=== PATIENT | male | born 1970 | race Caucasian/White ===

== ENCOUNTER 2023-05-18 12:13 | Emergency (ER) | payer SELFPAY ==
[2023-05-18 12:24] VITALS: BP 152/91; PULSE 108; RESP 16; TEMP 36.6; O2SAT 99; BMI 31.7
--- NOTE | 2023-05-18 13:23 | W.ED.SKABFB ---
HPI - Skin/Abscess/Foreign Bdy General: Chief complaint: Skin/Abscess/Foreign Body Stated complaint: bite on leg Time Seen by Provider: 05/18/23 12:54 History of Present Illness: 52-year-old male patient comes in today with redness and erythema to the left lower leg. Patient appears to have a possible insect bite that got infected to the left lower leg. Patient does report some chills at times. Patient also reports some nausea. Patient has a history of psoriasis which he uses cream for at times. Review of Systems General: Reports: 10 or more systems reviewed and unremarkable except in HPI and below Physical Exam Const: COMMON NORMALS: alert HENMT: COMMON NORMALS: normocephalic HEAD & SCALP: normocephalic Neck/C-Spine: COMMON NORMALS: full ROM Chest: COMMONS NORMALS: normal inspection of the chest Resp: COMMON NORMALS: normal respiratory effort Cardio: COMMON NORMALS: regular rate RATE: regular rate Extremity: LEFT LOWER EXTREMITY: Yes lower leg (Central lesion with at the erythema surrounding about 15 cm) Neuro: SENSORIUM/ORIENTATION: Yes alert Skin: LESIONS: lesion noted (Left lower leg with surrounding erythema) Course Vital Signs: Vital signs: Vital Signs Temperature 97.8 F 05/18/23 12:24 Pulse Rate 108 H 05/18/23 12:24 Respiratory Rate 16 05/18/23 12:24 Blood Pressure 152/91 05/18/23 12:24 Pulse Oximetry 99 05/18/23 12:24 MDM - Skin/Abscess/Foreign Bdy Medicial Decision Making 52-year-old male patient comes in with erythema and redness to the left lower leg. Patient appears nontoxic. Vital signs are stable except for some elevation in pulse. Differential diagnosis includes but not limited to cellulitis, abscess, local reaction insect bite. No radiology studies performed this visit Discharge Plan Discharge Patient Disposition: Home Clinical Impression: Cellulitis Qualifiers: Site of cellulitis: extremity Site of cellulitis of extremity: lower extremity Laterality: left Qualified Code(s): L03.116 - Cellulitis of left lower limb Condition: Stable Prescriptions: New clindamycin HCl 300 mg capsule 600 mg PO Q8H 7 Days Qty: 42 0RF Discharge Orders: Discharge ED (Routine); Ordered 05/18/23 Ordered By: Vargas Cardenas Discharge Diet: Usual diet Discharge Activity: Increase activity as tolerated Patient Instructions: Cellulitis (ED) Activity Restrictions/Additional Instructions: Continue antibiotics clindamycin 600 mg 3 times a day for the next 7 days. Elevate leg is much as possible. You should see improvement within 3 days. Return to ER for worsening symptoms such as increasing redness and swelling of the leg, fevers greater than 100.4, inability to hold fluids down. Coding Level of Care Code ED Pharmaceutical Operator for Donta Atkins
[2023-05-18] MEDS: ondansetron 4 MG Tablet PO (13:54)
[2023-05-18] MEDS: clindamycin 900 MG/50 ML PREMIX 100 MG IV (13:54)
[2023-05-18 14:39] VITALS: BP 131/86; PULSE 91; RESP 16; O2SAT 97
== END 2023-05-18 14:40 | disposition home or self-care (01) ==
PROVIDERS: Emergency Provider Nurse Practitioner Family
DX: L03.116 Cellulitis of left lower limb (principal)
CPT/HCPCS: 96374; 99284; J3490; Q0162

== ENCOUNTER 2023-07-14 11:36 | Outpatient (CLI) | payer OTHER, SELFPAY ==
[2023-07-14 12:07] LABS: Basophils % 0.5 %; Eosinophils # 0.1 10^3/uL (0.0-0.8); Eosinophils % 1.8 %; Hematocrit 53.2 % (37-53); Lymphocytes % 12.6 %; Mean Corpuscular HGB Conc 35.3 g/dL (30-55); Mean Corpuscular Hemoglobin 30.7 pg (27-33); Mean Corpuscular Volume 86.9 fl (82-101); Mean Platelet Volume 10.3 fL (7.4-10.4); Monocytes # 0.7 10^3/uL (0.2-0.9); Monocytes % 8.7 %; Neutrophils # 5.94 10^3/uL (1.8-7.7); Neutrophils % 76.1 %; Nucleated Red Blood Cells % 0 %; Platelet Count 267 10^3/cmm (157-399); Red Blood Count 6.12 10^6/uL (3.85-5.65); Red Cell Distribution Width 12.1 % (12.1-15.1)
[2023-07-14 12:28] LABS: Alanine Aminotransferase 29 U/L (0-41); Albumin Level 4.7 g/dL (3.5-5.2); Alkaline Phosphatase 98 U/L (40-130); Anion Gap 17.3 (5-19); Aspartate Amino Transferase 20 U/L (0-40); Blood Urea Nitrogen 20 mg/dL (6-20); Calcium 9.7 mg/dL (8.5-10.5); Carbon Dioxide 27 mmol/L (22-29); Chloride 102 mmol/L (98-107); Chol HDL Ratio 4.51 mg/dL (1.0-5.00); Cholesterol 185 mg/dL (0-200); Glucose 187 mg/dL (65-115); HDL Cholesterol 41 mg/dL (60-100); LDL Cholesterol Calculated 105 mg/dL (50-129); LDL HDL Ratio 2.56 RATIO (0.00-3.22); Osmolality Calculated 302 mOsm/kg (285-295); Potassium 4.3 mmol/L (3.5-5.1); Sodium 142 mmol/L (136-145); Total Bilirubin 0.5 mg/dL (0.15-1.2); Total Protein 7.7 g/dL (6.6-8.7); Triglycerides 194 mg/dL (0-150)
[2023-07-14 12:48] LABS: Hepatitis A Antibody IgM Non-Reactive (Nonreactive); Hepatitis B Core AB, Total Non-Reactive (Nonreactive); Hepatitis B Surface Antigen Non-Reactive (Nonreactive); Hepatitis C Virus Antibody Non-Reactive (Nonreactive)
[2023-07-14 14:07] LABS: Hepatitis B Surface AB > 1000.0 (11.5-1000)
[2023-07-18 11:29] LABS: Quantiferon Mitogen 7.26 IU/mL; Quantiferon Nil 0.02 IU/mL; Quantiferon TB Gold NEGATIVE (NEGATIVE)
== END 2023-07-14 11:37 | disposition home or self-care (01) ==
LOC: LAB 11:40
PROVIDERS: Visit Provider Nurse Practitioner Family
DX: L40.0 Psoriasis vulgaris (principal); L57.8 Other skin changes due to chronic exposure to nonionizing radiation
CPT/HCPCS: 36415; 80053; 80061; 85025; 86480; 86705; 86706; 86709; 86803; 87340

== ENCOUNTER 2024-05-22 09:26 | Inpatient (IN) | payer OTHER, SELFPAY ==
[2024-05-22] VITALS (18 sets, daily range): BP systolic 105–132; BP diastolic 73–95; PULSE 72–95; RESP 12–16; TEMP 37.1; O2SAT 93–99
--- NOTE | 2024-05-22 09:28 | XACV_ITS ---
Exam Room: [facility] Ht: 175 cm Wt: 93 kg BSA: 2.15 m2 Gender: Male : 1970 Any Known Allergies: Other Exam Priority: Routine Procedure(s): Procedure Description: Diagnostic procedure Procedure Description: PCI procedure Procedure Description: Left Heart Catheterization Procedure Description: Left ventriculography Procedure Description: Drug Eluting Coronary Stent Procedure Description: PTCA Procedure Description: Miscellaneous Procedure Description: ACT Procedure Description: Coronary Angiography Dinh VALERA; Diagnostic Cath Status: Emergency Diagnostic Findings * Left Main has no disease. * Proximal Left Anterior Descending to Mid Left Anterior Descending: total occlusion, JEAN CARLOS: 0 flow. * Distal Right Coronary Artery: minimal 30% stenosis, JEAN CARLOS: 0 flow. * Mid Circumflex: luminal irregularities 20% stenosis, JEAN CARLOS: 3 flow. * Coronary angiography shows right dominance. PCI Indication: STEMI - Immediate PCI for STEMI Interventional Findings * Proximal Left Anterior Descending to Mid Left Anterior Descendin% stenosis treated with a Drug Eluting Stent. 0% residual stenosis, JEAN CARLOS: 3 flow. * Distal Right Coronary Artery: 30% stenosis treated with a Balloon, Stent, and Balloon.JEAN CARLOS: 3 flow. Successful intervention. Conclusions 1. There is total occlusion coronary artery disease with three vessel disease. 2. The septal and anterior martinez are hypokinetic. 3. The apex in the CONKLIN view is hypokinetic. 4. Mild left ventricular systolic dysfunction. Ejection fraction of 40%. 5. Proximal Left Anterior Descending to Mid Left Anterior Descending was treated with a Drug Eluting Stent. 6. Distal Right Coronary Artery was treated with a Balloon, Stent, and Balloon. Recommendations * 1-Return to inpatient for close monitoring and routine cath care 2-Risk factor modification for secondary prevention 3-Statin and aspirin 81 mg life-long, if tolerated 4-Patient was pre-loaded with 600 mg of Plavix, continue Plavix 75mg p.o. daily for at least one year. We will assess at the end of one year again to continue if further or not 5-Continue optimal medical management 6-Follow up with Dr. Covarrubias in four weeks and your primary care in 10 days. Diagnostic RX Recommendation: PCI w/o planned CABG Ventriculography Ejection Fraction: 40.0 % Pressures Phase:Rest AO : 145 / 88 ( 110 ) @ 9:52:00 AM 158 / 84 ( 114 ) @ 10:09:00 AM 174 / 65 ( 68 ) @ 10:10:00 AM 136 / 85 ( 109 ) @ 10:16:00 AM 136 / 80 ( 105 ) @ 10:34:00 AM 133 / 62 ( 90 ) @ 10:47:00 AM 135 / 54 ( 81 ) @ 10:47:00 AM LV : 159 / -4 / 18 @ 10:09:00 AM 163 / -4 / 16 @ 10:09:00 AM 138 / -10 / 7 @ 10:46:00 AM 143 / -14 / 9 @ 10:47:00 AM 143 / -13 / 9 @ 10:47:00 AM Valves Phase:DefaultPhase AV : 12.0 @ 11:01:04 AM 12.0 @ 11:01:04 AM AV Mean Gradient: 14.0 @ 11:01:04 AM 14.0 @ 11:01:04 AM Clinical Evaluation EBL: 5mL-10mL Procedural Details Pre-Procedure Time Out. Identified patient by full name and date of as verbalized by the patient/guarantor. Does the consent match the physician's order: N/A Emergent. Accurate & Complete Informed Consent: N/A Emergent. Inpatient/Outpatient History & Physical on Chart: N/A Emergent. If H&P is completed, is and addenduem needed: N/A Emergent; Informed Consent not obtained due to time critical life threat; If yes, is the addendum complete: N/A Emergent. Visualize and Verify Site with Patient/Guarantor: N/A. Relevant Radiology Images available: Yes. The risks, benefits, and alternatives of sedation and/or procedure were discussed by physician. The patient agrees to continue. Procedure started. [facility] Clinical Fraility Score: 3: Managing Well. Clinical Sciences Professor Indications: ACS <= 24 hours. Chest Pain Symptom Assessment: Typical Angina Symptoms. Correct patient, site and procedure confirmed by cath team. Current diagnosis: STEMI. PERRLA. Strong, equal hand intellectual property paralegal bilaterally. Lungs clear x 5 lobes. IV Site on Arrival: 18 gauge in the left anticubital. IV Fluids: 0.9% NaCl at KVO. 0 mL infused prior to cath lab nurse. Pre Procedural Pulses: bilateral radial was 3+. Oxygen started at 2liters/min via nasal canula. right radial was prepped with chloroprep then draped in the usual sterile fashion. right groin was prepped with chloroprep then draped in the usual sterile fashion. Baseline sample Acquired. HR: 77 BPM. Physician notified. Physician arrived. Physician scrubbed in. Immediate Pre-Procedure Time Out. Correct Patient: N/A Emergent; Correct Procedure: N/A Emergent; Correct Site: N/A Emergent; Correct Patient Position: N/A Emergent; Correct Supplies: N/A Emergent; Dried Flammable Prep: N/A Emergent; Blood Products Available: N/A Emergent;. Lidocaine 1% infiltrated to the right radial. Arterial access obtained. 6 cayman islander XB 3.5 guide catheter was inserted over the wire. ACT drawn. Results 192 seconds. Therapeutic limits - pre-heparin administration 90-150 seconds and monitoring heparin during a vascular procedure >250 seconds. Guide catheter out due to tortuosity of vessel. Lidocaine 1% infiltrated to the right groin. Arterial access obtained with micropuncture set. Admit Source: Emergency department. 6 cayman islander XB 3.5 guide catheter was inserted over the wire. Guide catheter out. 6 cayman islander XB 3 guide catheter was inserted over the wire. Runthrough guidewire was advanced through the guide catheter to diagonal artery. Runthrough wire out. Guide catheter out. 6 cayman islander JR 4 guide catheter was inserted over the wire. EDP Sample taken: LV 159/-5,18; HR: 86 BPM; SpO2: 99%. Pullback taken: LV 163/-5,16; AO 158/84(114); Mean: 14mmHg, Peak to Peak: 5mmHg, SEP: 6sec/min; HR: 86 BPM; SpO2: 99%. Multiple views taken of RCA. Guide catheter out. 6 cayman islander XB 3 guide catheter was inserted over the wire. Runthrough guidewire was advanced through the guide catheter to lesion in the mid LAD. Balloon inserted to lesion in the mid LAD. Inflation number : 1 A AB MINI TREK 2.00X20 RX BALLOON was prepped and advanced across the Mid LAD , then inflated to 16 DANIEL for 0:12 seconds. Inflation number: 2 The AB MINI TREK 2.00X20 RX BALLOON was reinflated across the Mid LAD, to 16 DANIEL for 0:08 seconds. Inflation number: 3 The AB MINI TREK 2.00X20 RX BALLOON was reinflated across the Mid LAD, to 16 DANIEL for 0:08 seconds. Balloon out. 2nd runthrough wire in through guide catheter to diagonal artery. Stent inserted to lesion in the mid LAD. Inflation Number : 4 A MDT R HARRISON 3.0X15 BRAXTON -Lot Number# [id number] [facility] 10-23-2026 was prepped and advanced across the Mid LAD. The stent was deployed at 16 DANIEL for 0:15 seconds. Stent balloon out over wire. Results checked. Delay in PCI related to difficult anatomy. Balloon inserted to lesion in the diaganol. Inflation number : 1 A AB TREK 2.50X8 RX BALLOON was prepped and advanced across the 1st Diag , then inflated to 12 DANIEL for 0:13 seconds. Balloon out. Balloon inserted to lesion in the mid LAD. Inflation number : 5 A MDT NC EUPHORA RX 3.84O99UO BALLOON was prepped and advanced across the Mid LAD , then inflated to 12 DANIEL for 0:19 seconds. Inflation number: 6 The MDT NC EUPHORA RX 3.02R00EJ BALLOON was reinflated across the Mid LAD, to 14 DANIEL for 0:13 seconds. Inflation number: 7 The MDT NC EUPHORA RX 3.14G24SO BALLOON was reinflated across the Mid LAD, to 16 DANIEL for 0:12 seconds. Balloon out. ACT drawn. Results 281 seconds. Therapeutic limits - pre-heparin administration 90-150 seconds and monitoring heparin during a vascular procedure >250 seconds. Results checked. Both runthrough wires out. Results checked. Guide catheter out. A 5 cayman islander Angled Pig catheter in over wire. EDP Sample taken: LV 138/-10,7; HR: 88 BPM; SpO2: 99%. LV gram performed in CONKLIN @ 10 mL/second for a total of 30 mL. EDP Sample taken: LV 143/-15,9; HR: 91 BPM; SpO2: 97%. Pullback taken: LV 143/-14,9; AO 133/62(90); Mean: 14mmHg, Peak to Peak: 12mmHg, SEP: 20sec/min; HR: 86 BPM; SpO2: 97%. Catheter removed over the standard wire. A Right femoral angiogram was performed to determine safe placement of closure device. A Angio-Seal VIP ([place]) was successful obtaining hemostatsis at the Right Femoral artery insertion site. EXP 10-24-2024 LOT # [id number]. Post Procedure: Pulses reassessed and unchanged. PERRLA. Strong, equal hand intellectual property paralegal bilaterally. No VTE prophylaxis required. Medication's Wasted: Nitro = 49.6 mg. Medication's Wasted: Heparin = 3000 unit. Medication's Wasted: Other = Versed 1 mg. Total IV fluids: 90 mL. PCI Indication: STEMI. Post-op diagnosis: Anterior [place], PCI placement of 1 BRAXTON to mid LAD. Balloon Angioplasty to 1st diagonal. Complications: None. Estimated blood loss: 5mL-10mL. Responsiveness - Normal response to verbal stimuli; alert and oriented, PERRLA. Airway - Unaffected, no intervention required; spontaneous ventilation. Circulation: W/N/L, pulses unchanged. Nausea/Vomiting: No. A TR Band was successful obtaining hemostatsis at the Right Radial artery insertion site. Procedure completed. Patient transferred by bed to ICU. Vital chart was stopped. Access Site Site: Right Radial artery Sheath Size: 6 Fr Hemostasis Method: TR Band Hemostasis Success: Successful Site: Right Femoral artery Sheath Size: 6 Fr Hemostasis Method: Angio-Seal VIP ([place]) Hemostasis Success: Successful Procedure Medications Start: 9:40 AM Stop: 9:40 AM Medication: Plavix Amount: 600 mg Route: P.O. Start: 9:40 AM Stop: 9:40 AM Medication: Aspirin Amount: 325 mg Route: P.O. Start: 9:40 AM Stop: 9:40 AM Medication: Heparin Amount: 4000 units Start: 9:40 AM Stop: 9:40 AM Medication: Versed Amount: 1 mg Route: I.V. Start: 9:40 AM Stop: 9:40 AM Medication: Fentanyl Amount: 25 mcg Route: I.V. Start: 9:42 AM Stop: 9:42 AM Medication: Nitrogylcerin Amount: 200 mcg Route: I.A. Start: 9:45 AM Stop: 9:45 AM Medication: Fentanyl Amount: 25 mcg Route: I.V. Start: 9:51 AM Stop: 9:51 AM Medication: Heparin Amount: 7000 units Route: I.V. Start: 9:59 AM Stop: 9:59 AM Medication: Fentanyl Amount: 25 mcg Route: I.V. Start: 10:04 AM Stop: 10:04 AM Medication: Versed Amount: 1 mg Route: I.V. Start: 10:17 AM Stop: 10:17 AM Medication: Versed 1 mg and Fentanyl 25 mcg Start: 10:22 AM Stop: 10:22 AM Medication: Versed Amount: 1 mg Route: I.V. Start: 10:25 AM Stop: 10:25 AM Medication: Fentanyl Amount: 25 mcg Route: I.V. Start: 10:37 AM Stop: 10:37 AM Medication: Versed Amount: 1 mg Route: I.V. Start: 10:39 AM Stop: 10:39 AM Medication: Nitrogylcerin Amount: 200 mcg Route: I.C. Start: 10:41 AM Stop: 10:41 AM Medication: Fentanyl Amount: 25 mcg Route: I.V. Start: 10:44 AM Stop: 10:44 AM Medication: Heparin Amount: 2000 units Route: I.V. Start: 10:46 AM Stop: 10:46 AM Medication: Fentanyl Amount: 25 mcg Route: I.V. Start: 10:50 AM Stop: 10:50 AM Medication: Fentanyl Amount: 25 mcg Route: I.V. I, the attending physician, have reviewed and verified all procedure medications. Yes, all medications given per verbal order History/Risk Factors Hypertension: No Dyslipidemia: No Peripheral Arterial Disease (PAD): No Myocardial Infarction ([place]): No Obesity: No Renal Disease: No Prior Interventions PCI: Yes CABG: No Valve Surgery: No Report Signatures Finalized by Lizbeth Covarrubias MD on 06/05/2024 07:27 PM
--- NOTE | 2024-05-22 09:29 | ECG_ITS ---
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 Measurements Intervals [place] Rate: 68 P: 24 [place]: 151 QRS: 30 QRSD: 87 T: 35 QT: 401 QTc: 428 Interpretive Statements SINUS RHYTHM ANTERIOR MYOCARDIAL INFARCTION , POSSIBLY ACUTE [40+ ms Q WAVE AND/OR ST/T ABNORMALITY IN V3/V4] ACUTE RI ST elevations suggest of high lateral wall RI No previous ECG available for comparison Electronically Signed On 05-22-2024 17:55:55 METAL FURNITURE PANEL COVERER by Delmi Fermin M.D. [id number]
--- NOTE | 2024-05-22 09:31 | ED_ITS ---
HPI - Chest Pain General: Stated Complaint: STEMI Time Seen by Provider: 05/22/24 09:31 History of Present Illness: 53-year-old male presents emergency room with chest pain that began last night around 730 8:00 after he been moving some heavy items. Persisted throughout the night he called EMS this morning on arrival EMS noted ST elevation in the field EKG and called a STEMI in the field 30 minutes prior to arrival. Transport time was slowed significantly because of adverse weather and road conditions. On arrival he is still having significant chest pain despite 4 sublingual nitros. He is also received aspirin in the field. He is not normally on any medications he is diabetic chews tobacco but does not smoke. An initial EKG on arrival shows a anterior ST elevation TN. Associated symptoms: Deny abdominal pain, dyspnea or fever(s) Related Data Previous Rx's ?Medication ?Instructions ?Recorded ondansetron 4 mg disintegrating 4 mg PO Q8H PRN nausea and 05/18/23 tablet vomiting #10 tabs Allergies Allergy/AdvReac Type Severity Reaction Status Date / Time acetaminophen Allergy ALGY-Hives Verified 05/18/23 12:25 ibuprofen Allergy ALGY-Hives Verified 05/18/23 12:25 Penicillins Allergy ALGY-Anaphy Verified 05/18/23 12:25 laxis Review of Systems Const: Denies: fever(s) or chills Card: Reports: chest pain Resp: Denies: dyspnea GI: Denies: abdominal pain : Denies: dysuria, urinary frequency or urinary urgency Musc: Denies: neck pain or back pain Skin/Breast: Denies: rash PFS ED PFSH: Medical History Diabetes mellitus Physical Exam Const: GENERAL APPEARANCE: cooperative ORIENTATION/CONSCIOUSNESS: Yes awake, Yes oriented to person, Yes oriented to place and Yes oriented to time HENMT: COMMON NORMALS: normocephalic, atraumatic and hearing grossly normal bilaterally HEAD & SCALP: normocephalic and atraumatic Resp: COMMON NORMALS: normal respiratory effort, No retractions, No use of accessory muscles and clear to auscultation bilaterally AUSCULTATION: clear to auscultation bilaterally Cardio: COMMON NORMALS: regular rate, regular rhythm and No murmurs present (Cardio) RATE: regular rate RHYTHM: regular rhythm GI: COMMON NORMALS: Soft to palpation and No hepatosplenomegaly present AUSCULTATION: Yes normoactive bowel sounds PALPATION: Yes Soft to palpation, No Tenderness to palpation present (GI), No Guarding due to palpation present (GI) and Yes No hepatosplenomegaly present Extremity: COMMON NORMALS: normal to inspection, capillary refill normal, no clubbing, cyanosis or edema, no calf tenderness and no pedal edema Neuro: SENSORIUM/ORIENTATION: Yes oriented to person, Yes oriented to place and Yes oriented to time Skin: COMMON NORMALS: no rashes or lesions noted GENERAL SKIN EXAM: no rashes or lesions noted MDM - Chest Pain Medical Decision Making Patient has acute anterior ST elevation TN. Dr. Covarrubias arrived very shortly after the patient came to the department. We are still arranging for initial STEMI medications patient physically is prepped and changed [facility] [employer] staff took patient directly to [facility] [employer] [facility] they will administer the medications in the lab including the Brilinta and heparin. Medical Records I reviewed the patient's medical records. Lab Data I reviewed the patient's lab results. No radiology studies performed this visit Discharge Plan Discharge Patient Disposition: Admitted As Inpatient Clinical Impression: ST elevation TN (STEMI) Condition: Stable Coding Level of Care Code ED Scrape Gatherer for Donta Atkins
--- NOTE | 2024-05-22 11:05 | P.HP_ITS ---
Providers/Chief Complaint 2 Admitting Physician: Lizbeth Covarrubias MD Chief Complaint: STEMI History of Present Illness Dwight Urias is a 53 year old male past medical history significant for hypertension hyperlipidemia diabetes mellitus was moving furniture with his friend when he started having chest pain last night. Patient sat on the chest pain which was off and on in duration and corrected however this morning when chest pain became consistent and high in intensity he decided to come to the ER. Initial twelve-lead EKG is suggestive of anterolateral ST elevation MA. It is the reason we are taking patient to the Electric Motor Mechanic. Review of Systems 2 Const: Denies: fever(s) or chills Card: Reports: chest pain Resp: Denies: dyspnea GI: Denies: abdominal pain : Denies: dysuria, urinary frequency or urinary urgency Musc: Denies: neck pain or back pain Skin/Breast: Denies: rash Medications/Allergies Home Medications ?Medication ?Instructions ?Recorded ?Confirmed ?Last Taken ?Type risankizumab-rzaa 150 mg/mL 150 mg SUBCUT Q30D 5 05/30/24 Unknown History subcutaneous pen injector (Quinn) aspirin 81 mg tablet,delayed 81 mg PO DAILY #30 tabs 0 05/24/24 05/30/24 05/30/24 Rx release atorvastatin 40 mg tablet 80 mg (2 x 40 mg) PO BEDTIME #30 05/24/24 05/30/24 05/29/24 Rx tabs insulin glargine 100 unit/mL (3 10 unit (0.1 mL) SUBCU T QPM #15 mL 05/24/24 05/30/24 05/29/24 Rx mL) subcutaneous pen (Basaglar KwikPen U-100 Insulin) metoprolol succinate 25 mg 12.5 mg (1/2 x 25 mg) PO DA SHADI #30 05/24/24 05/30/24 05/30/24 Rx tablet,extended release 24 hr tabs lisinopril 2.5 mg tablet 2.5 mg PO DAILY #90 tabs 05/30/24 Unknown Rx clopidogrel 75 mg tablet 75 mg PO DAILY #90 tabs 06/08 01/02 Unknown Rx nitroglycerin 0.4 mg sublingual 0.4 mg sublingual Q5M PRN chest 06/27/24 Unknown Rx tablet pain #30 tabs Allergies Allergy/AdvReac Type Severity Reaction Status Date / Time acetaminophen Allergy ALGY-Hives Verified 06/27/24 03:11 ibuprofen Allergy ALGY-Hives Verified 06/27/24 03:11 Penicillins Allergy ALGY-Anaphy Verified 06/27/24 03:11 laxis PFSH Acute 2 PFSH: Medical History ST elevation MA (STEMI) Diabetes mellitus Social History Smoking and tobacco/nicotine status: former use of tobacco/nicotine Physical Exam 2 Const: OTHER: GENERAL: Patient is alert, awake and oriented x3. Patient is in moderate distress HEART: Regular S1 and S2. No murmur, rub or gallop. LUNGS: Clear to auscultate bilaterally. CENTRAL NERVOUS SYSTEM: Grossly nonfocal. EXTREMITIES: Lower extremities with out edema bilaterally. Data 05/24/24 09:16 05/24/24 09:16 A&P Assessment and plan (1) ST elevation MA (STEMI): (2) Diabetes mellitus: Plan #1 ST elevation MA of anterior wall #2 hypertension #3 diabetes mellitus Patient was loaded with dual antiplatelet therapy, he was given IV heparin we will proceed with urgent left heart cath/PCI if indicated. Further plan will be advised as per progress the patient. Patient will be admitted to ICU, medicine consult has been requested to help out us in controlling the diabetes. PDMP PDMP Reviewed: Not Reviewed Attestations 2 Medical Necessity Statement*: I am expecting his stay to cross more than 2 midnights. This is an inpatient admission. Coding Level of Care Code Acute Code for [facility] Diagnoses ST elevation MA (STEMI) I21.3 Diabetes mellitus E11.9
--- NOTE | 2024-05-22 11:11 | P.PCN_ITS ---
Procedure Note: Date of procedure: 05/22/24 Pre-procedure diagnosis: ST elevation MD Post-procedure diagnosis: same Procedure: Left heart catheterization: It was difficult anatomy because of extreme tortuosity of the right subclavian vessel we have to switch to the groin. LAD was not visible it took some time to find the knob. Finally we were able to cross the mid LAD. Balloon angioplasty followed by drug-eluting stent jailing the diagonal branch was performed. We then crossed with a wire into the jailed diagonal branch. Balloon angioplasty was performed to flare open the stent jailing the ostium of the diagonal branch. Final noncompliant balloon 3.5 x 15 was used to postdilated mid LAD stent. Excellent angiographic result with JEAN CARLOS- 3 flow was achieved at the end of the case. Patient remained stable and transferred to the ICU Left ventricular end-diastolic pressure was 7 mmHg Left ventricle ejection fraction was 40% Plan IV fluid 100 mL/h for next 10 hours Continue aspirin statin Over next 24 hours will add beta-tucker and WILDA inhibitor if needed Echocardiogram will be obtained to assess LV function Right groin was sealed with Angio-Seal bedrest for 4 hours Right radial band will be taken off as per protocol Patient can eat cardiac diet. Coding Level of Care Code Acute Code for Donta Atkins
--- NOTE | 2024-05-22 11:20 | PC.NURSE ---
arrived from vp lab, AO x4 R femoral angio seal dry and intact right wrist tr band dry and intact
[2024-05-22] MEDS: sodium chloride 0.9% 1,000 ML 100 ML IV ×2 (11:25→19:27)
[2024-05-22] MEDS: ALPRAZolam 0.5 mg Tablet 0.25 MG PO (11:25)
--- NOTE | 2024-05-22 11:29 | ECG_ITS ---
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 Measurements Intervals [place] Rate: 73 P: 43 NM: 147 QRS: 61 QRSD: 88 T: 74 QT: 414 QTc: 457 Interpretive Statements SINUS RHYTHM WITH FREQUENT VENTRICULAR PREMATURE COMPLEXES IN A BIGEMINAL PATTERN LOW QRS VOLTAGE IN PRECORDIAL LEADS [QRS DEFLECTION < 1.0 mV IN CHEST LEADS] ANTERIOR MYOCARDIAL INFARCTION , PROBABLY RECENT [40+ ms Q WAVE AND/OR ST/T ABNORMALITY IN V3/V4] ACUTE NV Compared to ECG 05/22/2024 09:26:38 Ventricular premature complex(es) now present Low QRS voltage now present Myocardial infarct finding still present Electronically Signed On 05-22-2024 18:29:38 ARTIFICIAL FOLIAGE ARRANGER by Delmi Fermin M.D. [email or web address] [id number]
--- NOTE | 2024-05-22 18:12 | ECG_ITS ---
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 Measurements Intervals [place] Rate: 79 P: 38 WI: 152 QRS: 47 QRSD: 89 T: 51 QT: 399 QTc: 458 Interpretive Statements SINUS RHYTHM WITH OCCASIONAL VENTRICULAR PREMATURE COMPLEXES ANTERIOR MYOCARDIAL INFARCTION , OF INDETERMINATE AGE [40+ ms Q WAVE AND/OR ST/T ABNORMALITY IN V3/V4] Compared to ECG 05/22/2024 12:02:08 No significant changes Electronically Signed On 05-22-2024 18:29:45 BEAN PICKER MACHINE OPERATOR by Delmi Fermin M.D. [id number] [id number]
[2024-05-22] MEDS: HYDROcodone-acetaminophen 5-325 mg Tablet 1 TAB PO (18:14)
[2024-05-22] MEDS: atorvastatin 40 mg Tablet 80 MG PO (20:08)
[2024-05-23] VITALS (38 sets, daily range): BP systolic 88–135; BP diastolic 53–80; PULSE 81–95; RESP 0–19; TEMP 37–37.2; O2SAT 94–98
[2024-05-23 05:39] LABS: Basophils % 0.3 %; Eosinophils # 0.1 10^3/uL (0.0-0.8); Hematocrit 44.3 % (37-53); Lymphocytes % 9.4 %; Mean Corpuscular HGB Conc 35.2 g/dL (30-55); Mean Corpuscular Hemoglobin 30.8 pg (27-33); Mean Corpuscular Volume 87.4 fl (82-101); Mean Platelet Volume 10.4 fL (7.4-10.4); Monocytes # 1.1 10^3/uL (0.2-0.9); Monocytes % 10.1 %; Neutrophils # 8.64 10^3/uL (1.8-7.7); Neutrophils % 78.8 %; Nucleated Red Blood Cells % 0 %; Platelet Count 191 10^3/cmm (157-399); Red Blood Count 5.07 10^6/uL (3.85-5.65); Red Cell Distribution Width 12.9 % (12.1-15.1); White Blood Count 10.96 10^3/uL (3.29-11.43)
[2024-05-23 05:59] LABS: Anion Gap 16.1 (5-19); Blood Urea Nitrogen 12 mg/dL (6-20); Calcium 8.6 mg/dL (8.5-10.5); Carbon Dioxide 26 mmol/L (22-29); Chloride 98 mmol/L (98-107); Glomerular Filtration Rate 101.1 mL/min (90-130); Glucose 265 mg/dL (65-115); Osmolality Calculated 291 mOsm/kg (285-295); Potassium 4.1 mmol/L (3.5-5.1); Sodium 136 mmol/L (136-145)
--- NOTE | 2024-05-23 08:25 | USCV_ITS ---
Dwight Urias Age: 53 Gender: M : 1970 Exam Date: 05/23/2024 08:40 Ordering Phys: Emeli May NP Technologist: ANDERSON Exam Location: [facility] [place] Indication: mi BP: 116 / 80 HR: 93 Rhythm: Sinus Technical Quality: Adequate MEASUREMENTS (Male / Female) Normal Values 2D ECHO LV Diastolic Diameter PLAX 4.0 cm 4.2 - 5.9 / 3.9 - 5.3 cm IVS Diastolic Thickness 1.7 cm 0.6 - 1.0 / 0.6 - 0.9 cm IVS Systolic Thickness 2.0 cm LVPW Diastolic Thickness 1.5 cm 0.6 - 1.0 / 0.6 - 0.9 cm LVPW Systolic Thickness 1.8 cm LVOT Diameter 2.0 cm LV Ejection Fraction 2D Teich 57.3 % LV Ejection Fraction MOD 4C 48.5 % LV Ejection Fraction MOD 2C 55.4 % LV Ejection Fraction 2C AL 56.6 % LA Diameter 3.0 cm RA Systolic Volume 4C AL 30.0 ml RA Systolic Volume 4C MOD 28.2 ml LA Sys Volume AL 32.4 cm cubed LA Sys Volume Index AL 11.7 cm cubed/m squared Aorta at Sinotubular Diameter 3.1 cm IVC Diameter 2.2 cm M-MODE LA Ao Ratio MM 1.3 AV Cusp Separation MM 2.0 cm DOPPLER AV Peak Velocity 119.0 cm/s LVOT Peak Velocity 108.0 cm/s AV Area Cont Eq vti 2.6 cm squared AV Area Cont Eq pk 2.9 cm squared MV Peak Velocity 100.0 cm/s MV Area PHT 5.0 cm squared Mitral E to A Ratio 0.8 TV Peak Velocity 191.0 cm/s TR Peak Velocity 192.0 cm/s TR Peak Gradient 14.7 mmHg TV Peak E Velocity 64.0 cm/s PV Peak Velocity 117.0 cm/s FINDINGS Left Ventricle Moderately increased left ventricular cavity size. Moderately decreased left ventricular systolic function. Left ventricular ejection fraction is estimated at 40 %. There appeared to be mid to distal anterior septal and apical akinesis. It is consistent with possible LAD disease.Grade I/IV diastolic dysfunction (abnormal relaxation filling pattern), normal to mildly elevated filling pressures. Right Ventricle The right ventricle is normal in size and function. Right Atrium The right atrium is normal in size. Left Atrium The left atrium is normal in size. Mitral Valve Structurally normal mitral valve without significant stenosis or prolapse. There is no mitral regurgitation. Aortic Valve Moderate aortic valve calcification. No aortic valve stenosis. Trace aortic valve regurgitation. Tricuspid Valve Structurally normal tricuspid valve without significant stenosis or regurgitation. Pulmonary artery systolic pressure is normal. Pulmonic Valve Structurally normal pulmonic valve without significant stenosis. There is no pulmonic regurgitation. Pericardium Trivial pericardial effusion. Aorta Normal ascending aorta dimension. IVC The inferior vena cava appears normal. CONCLUSIONS Moderately increased left ventricular cavity size. Moderately decreased left ventricular systolic function. Left ventricular ejection fraction is estimated at 40 %. There appeared to be mid to distal anterior septal and apical akinesis. It is consistent with possible LAD disease.Grade I/IV diastolic dysfunction (abnormal relaxation filling pattern), normal to mildly elevated filling pressures. Trivial pericardial effusion. Moderate aortic valve calcification. No aortic valve stenosis. Trace aortic valve regurgitation. Right atrial pressure is around 5 mm of mercury. Lizbeth Covarrubias MD (Electronically Signed) Final Date: 23 May 2024 15:54 S
[2024-05-23] MEDS: aspirin 81 mg EC Tablet PO (09:00)
[2024-05-23] MEDS: clopidogrel 75 mg Tablet PO (09:00)
[2024-05-23] MEDS: metoprolol succinate ER (24 HR) 25 mg Tablet 12.5 MG PO (09:00)
--- NOTE | 2024-05-23 13:01 | P.PN_ITS ---
<Statement entered by Lizbeth Covarrubias MD - 05/23/24 19:17> Patient was evaluated and cared for in conjunction with an advanced practice practitioner. I personally examined the patient and reviewed the chart and all pertinent data including imaging, telemetry, and laboratory results. I discussed the patient in detail with the advanced practice practitioner. Please see their note for complete H&P testing result and agreed upon plan of care for the patient. Feeling better and had mild chest pressure this morning possible secondary to post KS pericarditis GENERAL: Patient is alert, awake and oriented x3. HEART: Regular S1 and S2. No murmur, rub or gallop. LUNGS: Clear to auscultate bilaterally. CENTRAL NERVOUS SYSTEM: Grossly nonfocal. EXTREMITIES: Lower extremities with out edema bilaterally. Assessment and plan Acute ST elevation [place] s/p drug-eluting stent to mid LAD and plain balloon angioplasty to jailed diagonal New onset of systolic heart failure due to LV dysfunction Echocardiogram pending Continue aspirin statin clopidogrel and beta-tucker Echocardiogram will be obtained to assess LV function and need for guideline medical therapy for heart failure. Subjective 2 Subjective: Patient status post stent to the LAD and diagonal after STEMI. He is still has been having some chest discomfort at the center of his chest postprocedure but he states it is much improved from previously. He is able to get up and walk and exert himself without experiencing chest pain. He states his chest discomfort is more when he takes a deep breath. Ejection fraction was 40%. Echo is getting obtained this morning. Vitals/I&O/Wt Last Vital Signs Temp 98.6 F 05/23/24 09:00 Pulse 90 05/23/24 10:00 Resp 10 L 05/23/24 10:00 BP 113/71 05/23/24 10:00 Pulse Ox 96 05/23/24 09:00 O2 Del Method Room Air 05/23/24 09:00 05/22/24 05/23/24 05/23/24 22:59 06:59 14:59 Intake Total 1326.667 / 6430.633 0251.333 / 2545.000 240 / 240 Output Total 525 / 525 900 / 1425 400 / 400 Balance 801.667 / 1001.667 118.333 / 1120.000 -160 / -160 Weight last 48 hrs Weight 209 lb 11.937 oz Weight 207 lb 14.4 oz Physical Exam 2 Narrative: General: No apparent distress, healthy appearing, well nourished Neck: No carotid bruit bilaterally Muskuloskeletal: Full ROM Lymphatic: no lymphedema noted Respiratory: Normal respiratory effort, clear to auscultation bilaterally throughout all lung thomas, no use of accessory muscles Cardio: No JVD, regular rate, regular rhythm, S1 S2 normal, no murmurs, peripheral pulses 2+ radial palpated bilaterally GI: Normal to inspection, nondistended Extremities: Full ROM, normal, normal capillary refill, no cyanosis or edema Neuro: Alert and oriented x4, no focal motor deficits Psych: Affect normal, denies suicidal ideation, mental status grossly normal Skin: No rashes or lesions noted, no wounds Data 05/23/24 04:41 05/23/24 04:41 A&P Assessment and plan (1) ST elevation [place] (STEMI): (2) Diabetes mellitus: Plan Patient status post stent to the mid LAD and diagonal. Continue dual antiplatelet therapy including aspirin and Plavix. Continue high-dose atorvastatin at 80 mg. Will add on metoprolol succinate 12.5 today and obtain echocardiogram. If patient does well today possibly go home tomorrow. PDMP PDMP Reviewed: Not Reviewed Attestations 2 Medical Necessity Statement*: Patient stay expected to cross 2 midnights due to the above plan of care Coding Level of Care Code Acute Code for [facility] Diagnoses ST elevation KS (STEMI) I21.3 Diabetes mellitus E11.9
[2024-05-23 16:17] LABS: Glucose Point of Care 376 mg/dL (70-110)
--- NOTE | 2024-05-23 16:44 | PC.NURSE ---
Patient is a type 2 diabetic who takes ozempic and jardiance at home. Blood sugar was checked and it was 376. Dr. Covarrubias was contacted and he stated to get a medicine doctor consulted. ER was called to start the process.
[2024-05-23 17:31] LABS: Glucose Point of Care 343 mg/dL (70-110)
[2024-05-23] MEDS: insulin lispro 100 unit/1 mL SUBCUT ×2 (17:51→21:13)
[2024-05-23] MEDS: atorvastatin 40 mg Tablet 80 MG PO (21:13)
[2024-05-23] MEDS: insulin glargine 100 units/1 mL 5 UNIT SUBCUT (21:14)
[2024-05-23 21:21] LABS: Glucose Point of Care 233 mg/dL (70-110)
[2024-05-24] VITALS (15 sets, daily range): BP systolic 60–132; BP diastolic 48–92; PULSE 78–90; RESP 0–29; TEMP 37.2; O2SAT 96
[2024-05-24 04:39] LABS: Estmated Average Glucose 232; Hemoglobin A1C 9.7 % (4.0-6.0)
[2024-05-24 07:22] LABS: Glucose Point of Care 233 mg/dL (70-110)
[2024-05-24] MEDS: clopidogrel 75 mg Tablet PO (08:20)
[2024-05-24] MEDS: aspirin 81 mg EC Tablet PO (08:20)
[2024-05-24] MEDS: insulin lispro 100 unit/1 mL SUBCUT ×2 (08:20→11:23)
[2024-05-24] MEDS: metoprolol succinate ER (24 HR) 25 mg Tablet 12.5 MG PO (08:20)
[2024-05-24 09:31] LABS: Basophils % 0.3 %; Eosinophils # 0.2 10^3/uL (0.0-0.8); Eosinophils % 1.6 %; Hematocrit 41.8 % (37-53); Lymphocytes # 1.1 10^3/uL (0.8-4.8); Lymphocytes % 11.5 %; Mean Corpuscular HGB Conc 34.4 g/dL (30-55); Mean Corpuscular Volume 87.1 fl (82-101); Mean Platelet Volume 10.4 fL (7.4-10.4); Monocytes # 0.9 10^3/uL (0.2-0.9); Monocytes % 9.3 %; Neutrophils # 7.32 10^3/uL (1.8-7.7); Nucleated Red Blood Cells % 0 %; Platelet Count 206 10^3/cmm (157-399); Red Cell Distribution Width 12.5 % (12.1-15.1)
[2024-05-24 09:48] LABS: Anion Gap 17.9 (5-19); Blood Urea Nitrogen 17 mg/dL (6-20); Calcium 8.6 mg/dL (8.5-10.5); Carbon Dioxide 24 mmol/L (22-29); Chloride 95 mmol/L (98-107); Glomerular Filtration Rate 88.3 mL/min (90-130); Glucose 373 mg/dL (65-115); Osmolality Calculated 293 mOsm/kg (285-295); Potassium 3.9 mmol/L (3.5-5.1); Sodium 133 mmol/L (136-145)
[2024-05-24 11:13] LABS: Glucose Point of Care 264 mg/dL (70-110)
--- NOTE | 2024-05-24 13:27 | PC.NURSE ---
Patient was given all discharge instructions and prescriptions. Patient was educated on post cardiac cath care. Patient was educated on diabetes type 2. Patient was educated on all new medications. IV was taken out. Patient was stable during discharge.
--- NOTE | 2024-05-24 15:56 | P.DS_ITS ---
<Statement entered by Lizbeth Covarrubias MD - 06/03/24 00:50> Patient was evaluated and cared for in conjunction with an advanced practice practitioner. I personally examined the patient and reviewed the chart and all pertinent data including imaging, telemetry, and laboratory results. I discussed the patient in detail with the advanced practice practitioner. Please see their note for complete H&P testing result and agreed upon plan of care for the patient Discharge Providers Date of Admission: 05/22/24 10:01 Date of Discharge: May 24, 2024 Attending Provider at Admission: Lizbeth Covarrubias MD Attending Provider at Discharge: Lizbeth Covarrubias MD Consults: Dr. Lee Diagnoses at Discharge Discharge Diagnosis (1) ST elevation [place] (STEMI): Status: Acute (2) Diabetes mellitus: Status: Acute Reason for Visit Reason for Visit: STEMI Brief History: This is a 53-year-old gentleman that presented to the emergency room with chest pain that began the night before after moving some heavy items. This persisted throughout the night he called EMS and on arrival EMS noted ST elevation in the field EKG and called a STEMI 30 minutes prior to arrival. Transport time was slowed significantly because of adverse weather and road conditions. On arrival he was still having chest pain despite several sublingual nitro administrations. He received aspirin in the field. He has a history of chewing tobacco, diabetes uncontrolled. EKG on arrival showed anterior ST elevation SC. 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 Patient remained stable and transferred to the ICU. His post cath course was normal without complications. Left ejection fraction was seen at 40%. He was placed on beta-tucker aspirin and Plavix as well as high-dose atorvastatin 80 mg. WILDA inhibitor was not started due to soft blood pressures. Otherwise patient tolerated procedure well without complications Physical Exam Narrative: General: No apparent distress, healthy appearing, well nourished Neck: No carotid bruit bilaterally Muskuloskeletal: Full ROM Lymphatic: no lymphedema noted Respiratory: Normal respiratory effort, clear to auscultation bilaterally throughout all lung thomas, no use of accessory muscles Cardio: No JVD, regular rate, regular rhythm, S1 S2 normal, no murmurs, peripheral pulses 2+ radial palpated bilaterally GI: Normal to inspection, nondistended Extremities: Full ROM, normal, normal capillary refill, no cyanosis or edema Neuro: Alert and oriented x4, no focal motor deficits Psych: Affect normal, denies suicidal ideation, mental status grossly normal Skin: No rashes or lesions noted, no wounds Discharge Data Studies Completed and Pending Completed Studies During Hospitalization Category Date Time Status CV. 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 STACKER HAND request for service Stat Exams 05/22/24 09:28 Taken Laboratory Results WBC 9.50 10^3/uL (3.29-11.43) 05/24/24 09:16 RBC 4.80 10^6/uL (3.85-5.65) 05/24/24 09:16 Hgb 14.40 g/dL (11.27-16.99) 05/24/24 09:16 Hct 41.8 % (37-53) 05/24/24 09:16 MCV 87.1 fl (82-101) 05/24/24 09:16 MCH 30.0 pg (27-33) 05/24/24 09:16 MCHC 34.4 g/dL (30-55) 05/24/24 09:16 RDW 12.5 % (12.1-15.1) 05/24/24 09:16 Plt Count 206 10^3/cmm (157-399) 05/24/24 09:16 MPV 10.4 fL (7.4-10.4) 05/24/24 09:16 Neut % (Auto) 77.0 % 05/24/24 09:16 Lymph % (Auto) 11.5 % 05/24/24 09:16 Ballard % (Auto) 9.3 % 05/24/24 09:16 Eos % (Auto) 1.6 % 05/24/24 09:16 Baso % (Auto) 0.3 % 05/24/24 09:16 Neut # (Auto) 7.32 10^3/uL (1.8-7.7) 05/24/24 09:16 Lymph # (Auto) 1.1 10^3/uL (0.8-4.8) 05/24/24 09:16 Ballard # (Auto) 0.9 10^3/uL (0.2-0.9) 05/24/24 09:16 Eos # (Auto) 0.2 10^3/uL (0.0-0.8) 05/24/24 09:16 Baso # (Auto) 0.0 10^3/uL (0.0-0.1) 05/24/24 09:16 Nucleated RBC % (auto) 0 % 05/24/24 09:16 Nucleated RBCs # 0.0 /100WBC 05/24/24 09:16 Sodium 133 mmol/L (136-145) L 05/24/24 09:16 Potassium 3.9 mmol/L (3.5-5.1) 05/24/24 09:16 Chloride 95 mmol/L (98-107) L 05/24/24 09:16 Carbon Dioxide 24 mmol/L (22-29) 05/24/24 09:16 Anion Gap 17.9 (5-19) 05/24/24 09:16 BUN 17 mg/dL (6-20) 05/24/24 09:16 Creatinine 0.9 mg/dL (0.7-1.2) 05/24/24 09:16 GFR Calculation 88.3 mL/min (90-130) L 05/24/24 09:16 Glucose 373 mg/dL (65-115) H 05/24/24 09:16 POC Glucose 264 mg/dL (70-110) H 05/24/24 11:10 Estimat Average Glucose 232 05/23/24 04:41 Hemoglobin A1c 9.7 % (4.0-6.0) H 05/23/24 04:41 Calculated Osmolality 293 mOsm/kg (285-295) 05/24/24 09:16 Calcium 8.6 mg/dL (8.5-10.5) 05/24/24 09:16 Procedures Performed Left heart catheterization: It was difficult anatomy because of extreme tortuosity of the right subclavian vessel we have to switch to the groin. LAD was not visible it took some time to find the knob. Finally we were able to cross the mid LAD. Balloon angioplasty followed by drug-eluting stent jailing the diagonal branch was performed. We then crossed with a wire into the jailed diagonal branch. Balloon angioplasty was performed to flare open the stent jailing the ostium of the diagonal branch. Final noncompliant balloon 3.5 x 15 was used to postdilated mid LAD stent. Excellent angiographic result with JEAN CARLOS- 3 flow was achieved at the end of the case. Patient remained stable and transferred to the ICU. Hospitalist was consulted for diabetes management. Vitals Last Vital Signs Temp 98.9 F 05/24/24 04:00 Pulse 84 05/24/24 13:25 Resp 18 05/24/24 13:22 BP 105/74 05/24/24 13:25 Pulse Ox 96 05/24/24 13:25 O2 Del Method Room Air 05/24/24 04:00 Discharge Plan Discharge Patient Disposition: Home Condition: Stable Prescriptions: New atorvastatin 40 mg Tablet 80 mg PO BEDTIME Qty: 30 0RF clopidogrel 75 mg Tablet 75 mg PO DAILY Qty: 30 0RF aspirin 81 mg Tablet,Delayed Release (Dr/Ec) 81 mg PO DAILY Qty: 30 0RF metoprolol succinate 25 mg Tablet Extended Release 24 Hr 12.5 mg PO DAILY Qty: 30 0RF insulin glargine [Basaglar KwikPen U-100 Insulin] 100 unit/mL (3 mL) insulin pen 10 unit SUBCUT QPM Qty: 15 0RF Continued Skyrizi 150 mg/mL pen injector 150 mg SUBCUT Q30D Discharge Orders: Discharge Order (Routine); Ordered 05/24/24 Ordered By: Emeli May Referrals: Maty Roque FNP [Nurse Practitioner] - 05/30/24 2:00 pm ([facility] ) Ana Miller FNP [Referring] - 05/28/24 2:40 pm Andrea Sims MD [Physician] - 4-7 days (We have notified your physician's clinic of the need for a follow-up appointment to be scheduled. If you have not heard from them within the next 2 business days, please call them directly. We have notified your physician's clinic of the need for a follow-up appointment to be scheduled. If you have not heard from them within the next 2 business days, please call them directly. ) Discharge Diet: Cardiac Discharge Activity: Increase activity as tolerated Patient Instructions: Metoprolol (By mouth), Aspirin (By mouth), Atorvastatin (By mouth) (Lipitor, Atorvaliq), Clopidogrel (By mouth) (Plavix), Insulin Glargine (By injection) (Lantus, Lantus SoloStar, Toujeo, Semglee), Coronary Angioplasty (DC), Type 1 Diabetes in Adults: New Diagnosis (DC), Hypoglycemia in a Person with Diabetes (DC), Coronary Intravascular Stent Placement (DC), Angio-Seal (DC), Type 2 Diabetes Management for Adults (DC), Chest Pain Stoplight, Opioid Safety, Post Angiogram Home Care Instructions, Post Heart Attack Stoplight Activity Restrictions/Additional Instructions: Discussed with patient no heavy lifting more than a gallon of milk as well as going up or down steps for 3 days. No driving for 3 days. Monitor for and report signs or symptoms of bleeding. Monitor for and report s/s of infection such as fever 101 or greater, swelling, redness or pain to the groin. Plan of Treatment: Patient is to continue dual antiplatelet therapy for ideally 2 years including aspirin and Plavix. Will continue atorvastatin 80 mg, metoprolol succinate 12.5. On an outpatient basis he may be started on an WILDA inhibitor if blood pressure allows. Repeat lab work in 7 to 10 days at follow-up appointment. Repeat echo in 3 months after heart failure guideline directed medical therapy has been initiated to assess LV function. Discharge Attestations Time Spent in Discharge Care*: less than 30 min Quality Metrics Clinical Quality Measures [ No reported AMI, CVA or VTE this stay] Coding Level of Care Code Acute Code for [facility] Diagnoses ST elevation [place] (STEMI) I21.3 Diabetes mellitus E11.9
== END 2024-05-24 13:27 | disposition home or self-care (01) | DRG 322 ==
LOC: ER 09:31 → CCL 09:31 → ICU 10:01
PROVIDERS: Hospitalist; Nurse Practitioner Family; Admitting Provider Internal Medicine Cardiovascular Disease; Emergency Provider Family Medicine; Visit Provider Internal Medicine Cardiovascular Disease
PROC: 027135Z Dilation of Coronary Artery, Two Arteries with Two Drug-eluting Intraluminal Devices, Percutaneous Approach (ICD-10-PCS; principal; 2024-05-22 09:30)
PROC: 027135Z Dilation of Coronary Artery, Two Arteries with Two Drug-eluting Intraluminal Devices, Percutaneous Approach (ICD-10-PCS; 2024-05-22 09:30)
DX: I21.09 ST elevation (STEMI) myocardial infarction involving other coronary artery of anterior wall (principal); E11.9 Type 2 diabetes mellitus without complications; F17.220 Nicotine dependence, chewing tobacco, uncomplicated; I10 Essential (primary) hypertension; E78.5 Hyperlipidemia, unspecified; Z79.82 Long term (current) use of aspirin; Z79.4 Long term (current) use of insulin; Z79.02 Long term (current) use of antithrombotics/antiplatelets
CPT/HCPCS: 36415; 36416; 80048; 82962; 83036; 85025; 85347; 92920; 93005; 93306; 93458; 96372; 96374; 99152; 99153; 99285; C1725; C1769; C1874; C1887; C1894; C9600; J1644; J1815; J2250; J3010; J3490; J7030; J9999; Q9967

== ENCOUNTER → 2024-05-30 14:56 | Outpatient (BNVA) | payer OTHER, SELFPAY | PROVIDERS: Visit Provider Nurse Practitioner Family | DX: I21.3 ST elevation (STEMI) myocardial infarction of unspecified site (principal) | CPT/HCPCS: 93005 ==

== ENCOUNTER 2024-05-30 15:18 | Observation (INO) | payer OTHER, SELFPAY ==
[2024-05-30] VITALS (23 sets, daily range): BP systolic 84–168; BP diastolic 53–100; PULSE 51–68; RESP 9–21; TEMP 36.5–36.7; O2SAT 94–98; BMI 30.4
--- NOTE | 2024-05-30 15:19 | ECG_ITS ---
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 Measurements Intervals [place] Rate: 68 P: 27 NH: 156 QRS: 44 QRSD: 88 T: 76 QT: 416 QTc: 443 Interpretive Statements SINUS RHYTHM ANTERIOR MYOCARDIAL INFARCTION , PROBABLY RECENT [40+ ms Q WAVE AND/OR ST/T ABNORMALITY IN V3/V4] ACUTE HI Compared to ECG 05/30/2024 15:01:29 No significant changes Electronically Signed On 05-30-2024 17:49:30 INSECTICIDE MIXER by Ulysses Bradley M.D. [id number]
[2024-05-30] MEDS: heparin 5,000 unit/mL INJ 1 mL 4000 UNIT IVP (15:30)
[2024-05-30] MEDS: aspirin 325 mg Tablet PO (15:31)
[2024-05-30] MEDS: clopidogrel 300 mg Tablet 600 MG PO (15:31)
[2024-05-30] MEDS: nitroglycerin 0.4 mg sublingual Tablet SUBLINGUAL (15:33)
--- NOTE | 2024-05-30 15:33 | ED_ITS ---
HPI - Chest Pain 2 General: Chief Complaint: Chest Pain Stated Complaint: cp Time Seen by Provider: 05/30/24 15:20 Source: patient Mode of arrival: ambulatory Limitations: no limitations History of Present Illness: 53-year-old male history of an ST elevat ion [place] last week he states he started having some chest pain today he was sent down here from heart care clinic. States pain is a sharp pain in center of his chest he rates a 4 out of 10. EKG showing elevation V2 V3. He denies any worsening improving factors denies any vomiting Associated symptoms: Deny abdominal pain, dyspnea, fever(s), nausea or vomiting Related Data Home Medications ?Medication ?Instructions ?Recorded ?Confirmed risankizumab-rzaa 150 mg/mL 150 mg SUBCUT Q30D 5 05/30/24 subcutaneous pen injector (Skyrizi) Previous Rx's ?Medication ?Instructions ?Recorded aspirin 81 mg tablet,delayed 81 mg PO DAILY #30 tabs 0 05/24/24 release atorvastatin 40 mg tablet 80 mg (2 x 40 mg) PO BEDTIME #30 05/24/24 tabs clopidogrel 75 mg tablet 75 mg PO DAILY #30 tabs 05/1125 insulin glargine 100 unit/mL (3 10 unit (0.1 mL) SUBCU T QPM #15 mL 05/24/24 mL) subcutaneous pen (Basaglar KwikPen U-100 Insulin) metoprolol succinate 25 mg 12.5 mg (1/2 x 25 mg) PO DA SHADI #30 05/24/24 tablet,extended release 24 hr tabs lisinopril 2.5 mg tablet 2.5 mg PO DAILY #90 tabs Allergies Allergy/AdvReac Type Severity Reaction Status Date / Time acetaminophen Allergy ALGY-Hives Verified 05/30/24 15:31 ibuprofen Allergy ALGY-Hives Verified 05/30/24 15:31 Penicillins Allergy ALGY-Anaphy Verified 05/30/24 15:31 laxis Review of Systems 2 Const: Denies: fever(s), chills, body aches or change in appetite ENMT: Denies: throat pain or dental pain Card: Reports: chest pain Resp: Denies: dyspnea GI: Denies: abdominal pain, nausea, vomiting or diarrhea Musc: Denies: neck pain or back pain Skin/Breast: Denies: rash Neuro: Denies: headache(s) PFSH ED 2 PFSH: Medical History ST elevation [place] (STEMI) Diabetes mellitus Social History Smoking and tobacco/nicotine status: former use of tobacco/nicotine Physical Exam 2 Const: COMMON NORMALS: patient oriented x3 HENMT: COMMON NORMALS: normocephalic and atraumatic HEAD & SCALP: n ormocephalic and atraumatic Eye: COMMON NORMALS: conjunctivae normal CONJUNCTIVA: Yes conjunctivae normal Neck/C-Spine: COMMON NORMALS: full ROM and supple Chest: COMMONS NORMALS: normal inspection of the chest Resp: COMMON NORMALS: normal respiratory effort, No retractions, No use of accessory muscles and clear to auscultation bilaterally AUSCULTATION: clear to auscultation bilaterally Cardio: COMMON NORMALS: regular rate, regular rhythm and No murmurs present (Cardio) RATE: regular rate RHYTHM: regular rhythm Extremity: COMMON NORMALS: normal to inspection and full ROM Neuro: COMMON NORMALS: patient oriented x3, moves all extremities and no focal motor deficits Psych: COMMON NORMALS: mental status grossly normal, Normal thought process present and cooperative THOUGHT PROCESS: Normal thought process present Skin: COMMON NORMALS: no rashes or lesions noted and no wounds GENERAL SKIN EXAM: no rashes or lesions noted Course 2 Vital Signs: Vital signs: Vital Signs Temperature 98.1 F 05/30/24 15:26 Pulse Rate 68 05/30/24 15:26 Respiratory Rate 16 05/30/24 15:26 Blood Pressure 168/100 05/30/24 15:26 Pulse Oximetry 98 05/30/24 15:26 Oxygen Delivery Me thod Room Air 05/30/24 15:26 MDM - Chest Pain Medical Decision Making Patient presents for chest pain EKG does show ST elevation V2 V3 Plumber Assistant has been contacted Dr. Bradley is seen patient in the ER and will take patient to the Plumber Assistant at this time. Medical Records I reviewed the patient's medical records. Lab Data I reviewed the patient's lab results. 05/30/24 15:30 05/30/24 15:30 All radiology interpretation(s) finalized by discharge EKG Data EKG 1: I personally reviewed and interpreted this EKG as follows: EKG interpretation date: 05/30/24 EKG interpretation time: 15:22 Interpretation: nsr hr 68 st elevation v2 and v3 Discharge Plan Discharge Condition: Stable Prescriptions: No Action lisinopril 2.5 mg tablet 2.5 mg PO DAILY Qty: 90 1RF Skyrizi 150 mg/mL pen injector 150 mg SUBCUT Q30D atorvastatin 40 mg Tablet 80 mg PO BEDTIME Qty: 30 0RF clopidogrel 75 mg Tablet 75 mg PO DAILY Qty: 30 0RF aspirin 81 mg Tablet,Delayed Release (Dr/Ec) 81 mg PO DAILY Qty: 30 0RF metoprolol succinate 25 mg Tablet Extended Release 24 Hr 12.5 mg PO DAILY Qty: 30 0RF insulin glargine [Basaglar KwikPen U-100 Insulin] 100 unit/mL (3 mL) insulin pen 10 unit SUBCUT QPM Qty: 15 0RF Print Language: Latvian Coding Level of Care Code ED Furniture Fabricator for Donta Atkins
[2024-05-30 15:43] LABS: Basophils % 0.5 %; Eosinophils # 0.2 10^3/uL (0.0-0.8); Lymphocytes % 13.2 %; Mean Corpuscular HGB Conc 35.3 g/dL (30-55); Mean Corpuscular Volume 84.9 fl (82-101); Mean Platelet Volume 10.5 fL (7.4-10.4); Monocytes # 0.6 10^3/uL (0.2-0.9); Monocytes % 8.1 %; Neutrophils % 74.8 %; Nucleated Red Blood Cells % 0 %; Platelet Count 288 10^3/cmm (157-399); Red Cell Distribution Width 12.4 % (12.1-15.1); White Blood Count 7.63 10^3/uL (3.29-11.43)
--- NOTE | 2024-05-30 15:43 | P.HP_ITS ---
<Statement entered by Ulysses Bradley M.D - 05/31/24 08:12> Patient was evaluated and cared for in conjunction with an advanced practice practitioner.? I personally examined the patient and reviewed the chart and all pertinent data including imaging, telemetry, and laboratory results.? I discussed the patient in detail with the advanced practice practitioner.? Please see? their note for complete H&P, testing results and agreed upon plan of care for the patient. Patient had recent STEMI and had PCI of mid LAD. Came to clinic today and was experiencing chest discomfort. Initially started at 5/10. Also felt some radiation to the jaw. Was sent to the emergency room and EKG was showing persistent ST elevation. 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 HEART: Regular S1 and S2 LUNGS: Clear to auscultate bilaterally. CENTRAL NERVOUS SYSTEM: Grossly nonfocal. EXTREMITIES: Lower extremities with out edema bilaterally. 1) STEMI 2) Coronary artery disease Patient had recent STEMI. EKG is showing persistent ST elevation and he is experiencing chest discomfort. We will emergently take him to [facility] for coronary angiogram with possible PCI. Differentials of persistent ST elevation include reocclusion of LAD versus aneurysm of apex Patient given aspirin and plavix. Loaded with heparin Providers/Chief Complaint 2 Admitting Physician: Dr. Bradley Chief Complaint: cp History of Present Illness Dwight Urias is a 53 year old male who presented today in the clinic for follow-up for history of recent STEMI and coronary stent placement. He was admitted from May 22, 2024 to May 24, 2024 in which a coronary angiogram was performed and a stent placed in the mid LAD and balloon angioplasty of the first diagonal branch. EF at that time was noted to be 40%. He presented to our clinic today reporting a dull achy chest pain localized to the left side of the center of his chest mild in intensity starting approximately 1 hour prior to the visit with a severity of 5 out of 10 in nature. EKG was obtained that showed some slight ST elevation. He was sent to the emergency room to rule out acute coronary syndrome by trending troponins. Dr. Bradley had seen the patient in clinic and at that time his chest pain had nearly resolved. In the ER his chest pain started again and he had another EKG in the ER that showed some ST elevation in lead V2-V5. States he has been compliant with Aspirin and Plavix and up until today, did not have any chest pain. Review of Systems 2 Narrative: Consitutional: denies fever, chills, body aches, or changes in appetite, denies abnormal weight loss Eyes: Denies changes in vision Card: Reports on and off again left sided chest pressure, denies palpitations, irregular heart rhythm, edema, syncope, shortness of breath, orthopnea, leg pain with exertion Resp: Denies shortness of breath, denies hemoptysis, denies cough GI: denies abdominal pain, denies nausea or voimting, denies blood in stool : denies blood in urine, denies dysuria Musc: Denies extremity pain, denies limited range of motion or recent injury Skin: Denies rash, lesions, or wounds, denies changes to skin color Neuro: Denies nubmness in extremities, h/a, s/s of stroke Russel: Denies easy bruiding/bleeding Medications/Allergies Home Medications ?Medication ?Instructions ?Recorded ?Confirmed ?Last Taken ?Type risankizumab-rzaa 150 mg/mL 150 mg SUBCUT Q30D 5 05/30/24 Unknown History subcutaneous pen injector (Quinn) aspirin 81 mg tablet,delayed 81 mg PO DAILY #30 tabs 0 05/24/24 05/30/24 05/30/24 Rx release atorvastatin 40 mg tablet 80 mg (2 x 40 mg) PO BEDTIME #30 05/24/24 05/30/24 05/29/24 Rx tabs clopidogrel 75 mg tablet 75 mg PO DAILY #30 tabs 05/1105/30/24 05/30/24 Rx insulin glargine 100 unit/mL (3 10 unit (0.1 mL) SUBCU T QPM #15 mL 05/24/24 05/30/24 05/29/24 Rx mL) subcutaneous pen (Luz Elena Palomino U-100 Insulin) metoprolol succinate 25 mg 12.5 mg (1/2 x 25 mg) PO DA SHADI #30 05/24/24 05/30/24 05/30/24 Rx tablet,extended release 24 hr tabs lisinopril 2.5 mg tablet 2.5 mg PO DAILY #90 tabs 05/30/24 Unknown Rx Allergies Allergy/AdvReac Type Severity Reaction Status Date / Time acetaminophen Allergy ALGY-Hives Verified 05/30/24 15:31 ibuprofen Allergy ALGY-Hives Verified 05/30/24 15:31 Penicillins Allergy ALGY-Anaphy Verified 05/30/24 15:31 laxis PFSH Acute 2 PFSH: Medical History ST elevation PR (STEMI) Diabetes mellitus Social History Smoking and tobacco/nicotine status: former use of tobacco/nicotine Vitals/I&O/Wt Last Vital Signs Temp 98.1 F 05/30/24 15:26 Pulse 68 05/30/24 15:26 Resp 16 05/30/24 15:26 BP 168/100 05/30/24 15:26 Pulse Ox 98 05/30/24 15:26 O2 Del Method Room Air 05/30/24 15:26 Weight last 48 hrs Weight 202 lb Physical Exam 2 Narrative: General: No apparent distress, healthy appearing, well nourished HENMT: normoceophalic Neck: No carotid bruit bilaterally Muskuloskeletal: Full ROM Lymphatic: no lymphedema noted Respiratory: Normal respiratory effort, clear to auscultation bilaterally throughout all lung thomas, no use of accessory muscles Cardio: No JVD, regular rate, regular rhythm, S1 S2 normal, no murmurs, peripheral pulses 2+ radial palpated bilaterally GI: Normal to inspection, nondistended Extremities: Full ROM, normal, normal capillary refill, no cyanosis or edema Neuro: Alert and oriented x4, no focal motor deficits Psych: Affect normal, denies suicidal ideation, mental status grossly normal Skin: No rashes or lesions noted, no wounds Data 05/30/24 15:30 05/30/24 15:30 A&P Assessment and plan (1) ST elevation: (2) Chest pain: Qualifiers: Chest pain type: unspecified Qualified Code(s): R07.9 - Chest pain, unspecified (3) Essential hypertension: Plan Patient may be having ST elevation may be resolving from previous STEMI, however due to patient's new onset chest pain s/p stent to the LAD, emergent cath is necessary to rule out acute coronary ischemia. Dr. Bradley discussed this with the patient and family member as well as risks and benefits, and he fully agrees to proceed with emergent left heart cath, possible PCI. Patient being given sublingual nitro. He was given heparin, loaded with Plavix and aspirin 325 mg. PDMP PDMP Reviewed: Not Reviewed Attestations 2 Medical Necessity Statement*: Patient expected to possibly cross 1 midnight due to above defined care. Coding Level of Care Code Acute Code for [facility] Fwd Diagnoses ST elevation R94.31 Chest pain, unspecified type R07.9 Chest pain type: unspecified Essential hypertension I10
[2024-05-30 15:55] LABS: Troponin(5th) Baseline 546 ng/L (0-15)
[2024-05-30] MEDS: morphine 4 mg/mL SDV 1 mL IVP (15:55)
[2024-05-30 15:57] LABS: Alanine Aminotransferase 39 U/L (0-41); Albumin Level 4.5 g/dL (3.5-5.2); Alkaline Phosphatase 155 U/L (40-130); Anion Gap 19.7 (5-19); Aspartate Amino Transferase 23 U/L (0-40); Blood Urea Nitrogen 14 mg/dL (6-20); Calcium 9.3 mg/dL (8.5-10.5); Carbon Dioxide 24 mmol/L (22-29); Chloride 95 mmol/L (98-107); Creatinine Clr Calc Pharmacy 106.1593; Globulin 2.5 g/dL (1.3-4.6); Glomerular Filtration Rate 88.3 mL/min (90-130); Glucose 358 mg/dL (65-115); Lipase 84 U/L (13-60); Osmolality Calculated 293 mOsm/kg (285-295); Potassium 4.7 mmol/L (3.5-5.1); Sodium 134 mmol/L (136-145); Total Bilirubin 0.5 mg/dL (0.15-1.2)
--- NOTE | 2024-05-30 15:59 | W.PM.OPSUD ---
Surgery/Procedure H&P Update DATE OF PROCEDURE: May 30, 2024 DATE H&P PERFORMED: 05/30/24 H&P UPDATE INFORMATION: I have reviewed H&P completed within last 30 days, I have examined patient prior to procedure and No changes to prior documentation PREOP DIAGNOSIS: ST elevation [place] PLANNED PROCEDURE: Left heart cath with possible percutaneous coronary intervention PATIENT REASSESSED PRIOR TO SEDATION, WITH NO CHANGE NOTED: Yes PHYSICAL EXAM: alert, oriented x 3, clear to auscultation bilaterally and regular rate & rhythm AIRWAY EVAL/ANESTHESIA PLAN: normal airway, ASA III, Local Anesthesia, Risks, benefits & alternatives of sedation and/or procedure discussed and Patient agrees to continue as planned ADDITIONAL INFORMATION: Moderate sedation
--- NOTE | 2024-05-30 16:19 | PM.PROC ---
Procedure Note: Date of procedure: 05/30/24 Pre-procedure diagnosis: ST elevation [place] Post-procedure diagnosis: other (Patent coronary arteries) Procedure: Left Main artery patent. LAD has mid vessel prior stent which is patent. Distal vessel has 40 to 50% stenosis. Left circumflex artery is patent. RCA is patent. Continue dual antiplatelet therapy and high intensity statin therapy. Performing Provider: Ulysses Bradley Estimated blood loss (mL): 5 Complications: None Condition: stable Disposition: floor Coding Level of Care Code Acute Code for [facility]
[2024-05-30 17:22] LABS: Glucose Point of Care 244 mg/dL (70-110)
[2024-05-30] MEDS: insulin lispro 100 unit/1 mL SUBCUT (17:44)
[2024-05-30] MEDS: insulin glargine 100 units/1 mL 10 UNIT SUBCUT (17:44)
--- NOTE | 2024-05-30 18:42 | PC.NURSE ---
received from cardiac labourers via w/c,in to room 104,at 1655.report received.pt is alert and awake and oriented x 4.denies pain at present.sr on monitor.right radial tr band on and inflated.right hand is warm to touch and with brisk capillary refill.palpable radial pulse noted distal to tr band.no hematoma noted.pt oriented to room environment.pt instructed in activity restrictions s/p radial artery procedure..and instructed to notify staff for any bleeding,pain,sob,numbness...or for any concerns at all.pt verb understanding of instructions
[2024-05-30 20:27] LABS: Troponin 5 2HR Delta -67.2 ABS# (0-10)
[2024-05-30 20:28] LABS: Troponin 5 2HR 478.8 ng/L (0-15)
[2024-05-30] MEDS: atorvastatin 40 mg Tablet 80 MG PO (20:36)
--- NOTE | 2024-05-30 21:19 | ECG_ITS ---
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
[2024-05-30 21:38] LABS: Troponin 5 6HR Delta -14.6 ng/L (0-12)
[2024-05-30 21:39] LABS: Troponin 5 6HR 531.4 ng/L (0-15)
[2024-05-30 22:30] LABS: Glucose Point of Care 211 mg/dL (70-110)
[2024-05-30] MEDS: ondansetron 2 mg/ML SDV 2 mL 4 MG IVP (23:02)
[2024-05-31] VITALS (17 sets, daily range): BP systolic 89–136; BP diastolic 55–86; PULSE 59–76; RESP 9–20; TEMP 36.5; O2SAT 94–98
[2024-05-31 04:31] LABS: Basophils % 0.4 %; Eosinophils # 0.2 10^3/uL (0.0-0.8); Eosinophils % 2.7 %; Hematocrit 40.4 % (37-53); Lymphocytes # 0.9 10^3/uL (0.8-4.8); Lymphocytes % 12.6 %; Mean Corpuscular HGB Conc 34.9 g/dL (30-55); Mean Corpuscular Hemoglobin 30.6 pg (27-33); Mean Corpuscular Volume 87.6 fl (82-101); Mean Platelet Volume 10.1 fL (7.4-10.4); Monocytes # 0.6 10^3/uL (0.2-0.9); Monocytes % 8.3 %; Neutrophils % 75.7 %; Nucleated Red Blood Cells % 0 %; Platelet Count 260 10^3/cmm (157-399); Red Blood Count 4.61 10^6/uL (3.85-5.65); Red Cell Distribution Width 12.4 % (12.1-15.1); White Blood Count 7.39 10^3/uL (3.29-11.43)
[2024-05-31 04:47] LABS: Anion Gap 15.3 (5-19); Blood Urea Nitrogen 16 mg/dL (6-20); Calcium 9.1 mg/dL (8.5-10.5); Carbon Dioxide 24 mmol/L (22-29); Chloride 100 mmol/L (98-107); Creatinine Clr Calc Pharmacy 124.2541; Glomerular Filtration Rate 101.1 mL/min (90-130); Glucose 230 mg/dL (65-115); Osmolality Calculated 288 mOsm/kg (285-295); Potassium 4.3 mmol/L (3.5-5.1); Sodium 135 mmol/L (136-145)
--- NOTE | 2024-05-31 05:03 | PC.NURSE ---
Started shift with TR band in place per previous shift 4 ml of out already. 2025 let 3 ml air out 2041 let 3 ml air out 2146 let 2 ml air out 2199 TR band completely deflated and off. Dressing in place with tergaderm. No hematoma or bleeding noted. Pt was c/o numbness and tingling but after TR band was removed patient had relief of symptoms.
--- NOTE | 2024-05-31 05:10 | PC.NURSE ---
2146- Patient c/o neck pain requesting pain medication. Let MD know that SBP has been 90-100. Per MD hold off since BP is low. Placed warm pack on neck to help. 2243 Patient c/o nausea requesting antinausea medication. Recieved orders for zofran 4 mg IV prn q4hr.
--- NOTE | 2024-05-31 05:48 | PC.NURSE ---
0577- Notified MD that patient BP is 175/111 and that there are no PRN avaliable. Awaiting reply back 5595- carlos WATTS regarding BP again. Retook BP again and still is 169/112. Recieved orders for 10 mg hydralazine IVP once and can give meds early if still hypertensive.
[2024-05-31 06:42] LABS: Glucose Point of Care 202 mg/dL (70-110)
[2024-05-31] MEDS: lisinopril 2.5 mg Tablet PO (09:20)
[2024-05-31] MEDS: metoprolol succinate ER (24 HR) 25 mg Tablet 12.5 MG PO (09:20)
[2024-05-31] MEDS: aspirin 81 mg EC Tablet PO (09:21)
[2024-05-31] MEDS: clopidogrel 75 mg Tablet PO (09:21)
[2024-05-31] MEDS: insulin lispro 100 unit/1 mL SUBCUT (09:22)
--- NOTE | 2024-05-31 09:50 | P.DS_ITS ---
<Statement entered by Ulysses Bradley M.D - 05/31/24 21:37> Patient was evaluated and cared for in conjunction with an advanced practice practitioner. I personally examined the patient and reviewed the chart and all pertinent data including imaging, telemetry, and laboratory results. I discussed the patient in detail with the advanced practice practitioner. Please see their note for complete discharge summary, results and agreed upon plan of care for the patient. Patient feeling well. No more chest pain. Coronary angiogram showed patent coronary arteries. Patient will be discharged home. GENERAL: Patient is alert and oriented HEART: Regular S1 and S2 LUNGS: Clear to auscultation bilaterally EXTREMITIES: Lower extremities with no edema Discharge Providers Date of Admission: 05/30/24 17:04 Date of Discharge: May 31, 2024 Attending Provider at Admission: Ulysses Bradley M.D Attending Provider at Discharge: Ulysses Bradley M.D Diagnoses at Discharge Discharge Diagnosis (1) ST elevation: Status: Acute (2) Chest pain: Status: Acute Qualifiers: Chest pain type: unspecified Qualified Code(s): R07.9 - Chest pain, unspecified (3) Essential hypertension: Status: Acute Reason for Visit Reason for Visit: cp Brief History: Dwight Urias is a 53 year old male who presented today in the clinic for follow-up for history of recent STEMI and coronary stent placement. He was admitted from May 22, 2024 to May 24, 2024 in which a coronary angiogram was performed and a stent placed in the mid LAD and balloon angioplasty of the first diagonal branch. EF at that time was noted to be 40%. He presented to our clinic today reporting a dull achy chest pain localized to the left side of the center of his chest mild in intensity starting approximately 1 hour prior to the visit with a severity of 5 out of 10 in nature. EKG was obtained that showed some slight ST elevation. He was sent to the emergency room to rule out acute coronary syndrome by trending troponins. Dr. Bradley had seen the patient in clinic and at that time his chest pain had nearly resolved. In the ER his chest pain started again and he had another EKG in the ER that showed some ST elevation in lead V2-V5. States he has been compliant with Aspirin and Plavix and up until today, did not have any chest pain. 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 Left Main artery patent. LAD has mid vessel prior stent which is patent. Distal vessel has 40 to 50% stenosis. Left circumflex artery is patent. RCA is patent. Post cath protocol was followed. He had an uneventful post cath course w/o chest pain. He was discharged in stable condition. Physical Exam Narrative: General: No apparent distress, healthy appearing, well nourished HENMT: normoceophalic Neck: No carotid bruit bilaterally Muskuloskeletal: Full ROM Lymphatic: no lymphedema noted Respiratory: Normal respiratory effort, clear to auscultation bilaterally throughout all lung thomas, no use of accessory muscles Cardio: No JVD, regular rate, regular rhythm, S1 S2 normal, no murmurs, peripheral pulses 2+ radial palpated bilaterally GI: Normal to inspection, nondistended Extremities: Full ROM, normal, normal capillary refill, no cyanosis or edema Neuro: Alert and oriented x4, no focal motor deficits Psych: Affect normal, denies suicidal ideation, mental status grossly normal Skin: right radial cath site clean, dry, intact w/o s/s of hematoma Discharge Data Studies Completed and Pending Pending at discharge Category Date Time Status 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 request 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 Stat Exams 05/30/24 15:26 Taken Laboratory Results WBC 7.39 10^3/uL (3.29-11.43) 05/31/24 04:24 Corrected WBC Cancelled 05/31/24 02:47 RBC 4.61 10^6/uL (3.85-5.65) 05/31/24 04:24 Hgb 14.10 g/dL (11.27-16.99) 05/31/24 04:24 Hct 40.4 % (37-53) 05/31/24 04:24 MCV 87.6 fl (82-101) 05/31/24 04:24 MCH 30.6 pg (27-33) 05/31/24 04:24 MCHC 34.9 g/dL (30-55) 05/31/24 04:24 RDW 12.4 % (12.1-15.1) 05/31/24 04:24 Plt Count 260 10^3/cmm (157-399) 05/31/24 04:24 MPV 10.1 fL (7.4-10.4) 05/31/24 04:24 Gran % Cancelled 05/31/24 02:47 Neut % (Auto) 75.7 % 05/31/24 04:24 Lymph % (Auto) 12.6 % 05/31/24 04:24 [place] % (Auto) 8.3 % 05/31/24 04:24 Eos % (Auto) 2.7 % 05/31/24 04:24 Baso % (Auto) 0.4 % 05/31/24 04:24 Neut # (Auto) 5.60 10^3/uL (1.8-7.7) 05/31/24 04:24 Lymph # (Auto) 0.9 10^3/uL (0.8-4.8) 05/31/24 04:24 [place] # (Auto) 0.6 10^3/uL (0.2-0.9) 05/31/24 04:24 Eos # (Auto) 0.2 10^3/uL (0.0-0.8) 05/31/24 04:24 Baso # (Auto) 0.0 10^3/uL (0.0-0.1) 05/31/24 04:24 Absolute Gran (auto) Cancelled 05/31/24 02:47 Nucleated RBC % (auto) 0 % 05/31/24 04:24 Nucleated RBCs # 0.0 /100WBC 05/31/24 04:24 Sodium 135 mmol/L (136-145) L 05/31/24 04:24 Potassium 4.3 mmol/L (3.5-5.1) 05/31/24 04:24 Chloride 100 mmol/L (98-107) 05/31/24 04:24 Carbon Dioxide 24 mmol/L (22-29) 05/31/24 04:24 Anion Gap 15.3 (5-19) 05/31/24 04:24 BUN 16 mg/dL (6-20) 05/31/24 04:24 Creatinine 0.8 mg/dL (0.7-1.2) 05/31/24 04:24 GFR Calculation 101.1 mL/min (90-130) 05/31/24 04:24 Glucose 230 mg/dL (65-115) H 05/31/24 04:24 POC Glucose 202 mg/dL (70-110) H 05/31/24 06:33 Calculated Osmolality 288 mOsm/kg (285-295) 05/31/24 04:24 Calcium 9.1 mg/dL (8.5-10.5) 05/31/24 04:24 Total Bilirubin 0.5 mg/dL (0.15-1.2) 05/30/24 15:30 AST 23 U/L (0-40) 05/30/24 15:30 ALT 39 U/L (0-41) 05/30/24 15:30 Alkaline Phosphatase 155 U/L (40-130) H 05/30/24 15:30 Troponin T Baseline 546 ng/L (0-15) H* 05/30/24 15:30 Troponin T 120 Minute 478.8 ng/L (0-15) H 05/30/24 19:33 Delta Troponin T -67.2 ABS# (0-10) L 05/30/24 19:33 Troponin T Hi Sens 6Hr 531.4 ng/L (0-15) H 05/30/24 21:12 Troponin T Hi Sens 6Hr Delta -14.6 ng/L (0-12) L 05/30/24 21:12 Total Protein 7.0 g/dL (6.6-8.7) 05/30/24 15:30 Albumin 4.5 g/dL (3.5-5.2) 05/30/24 15:30 Globulin 2.5 g/dL (1.3-4.6) 05/30/24 15:30 Lipase 84 U/L (13-60) H 05/30/24 15:30 Vitals Last Vital Signs Temp 97.7 F 05/31/24 08:07 Pulse 75 05/31/24 08:07 Resp 18 05/31/24 08:07 BP 116/76 05/31/24 08:07 Pulse Ox 97 05/31/24 04:00 O2 Del Method Room Air 05/31/24 04:00 Discharge Plan Discharge Patient Disposition: Home Condition: Stable Prescriptions: Continued lisinopril 2.5 mg tablet 2.5 mg PO DAILY Qty: 90 1RF Skyrizi 150 mg/mL pen injector 150 mg SUBCUT Q30D atorvastatin 40 mg Tablet 80 mg PO BEDTIME Qty: 30 0RF clopidogrel 75 mg Tablet 75 mg PO DAILY Qty: 30 0RF aspirin 81 mg Tablet,Delayed Release (Dr/Ec) 81 mg PO DAILY Qty: 30 0RF metoprolol succinate 25 mg Tablet Extended Release 24 Hr 12.5 mg PO DAILY Qty: 30 0RF insulin glargine [Basaglar KwikPen U-100 Insulin] 100 unit/mL (3 mL) insulin pen 10 unit SUBCUT QPM Qty: 15 0RF Discharge Orders: Discharge Order (Routine); Ordered 05/31/24 Ordered By: Emeli May Referrals: Maty Roque FNP [Nurse Practitioner] - 06/13/24 3:30 pm Discharge Diet: Advance as tolerated, Cardiac and Diabetic Discharge Activity: Increase activity as tolerated Patient Instructions: Heart Attack (DC), Chest Pain (DC), Chronic Hypertension (DC), Opioid Safety Activity Restrictions/Additional Instructions: Discussed with patient no heavy lifting more than a gallon of milk as well as going up or down steps for 3 days. No driving for 3 days from cath procedure. Monitor for and report signs or symptoms of bleeding. Monitor for and report s/s of infection such as fever 101 or greater, swelling, redness or pain to the wrist. Plan of Treatment: Continue dual antiplatelet therapy for 1 year. F/U in 1 week in the clinic. Continue statin therapy. Discharge Attestations Time Spent in Discharge Care*: less than 30 min Quality Metrics Clinical Quality Measures [ No reported AMI, CVA or VTE this stay] Coding Level of Care Code Acute Code for [facility] Fwd Diagnoses ST elevation R94.31 Chest pain, unspecified type R07.9 Chest pain type: unspecified Essential hypertension I10
--- NOTE | 2024-05-31 11:11 | PC.NURSE ---
discharge instructions given and explained.pt verb understanding of instructions.discharged ambulatory to exit.spouse to drive pt home
== END 2024-05-31 11:13 | disposition home or self-care (01) ==
LOC: ER 15:34 → CCL 15:54 → CSU 17:59
PROVIDERS: Admitting Provider Internal Medicine; Emergency Provider Emergency Medicine; Visit Provider Internal Medicine
DX: I21.3 ST elevation (STEMI) myocardial infarction of unspecified site (principal); I10 Essential (primary) hypertension; E11.9 Type 2 diabetes mellitus without complications; I25.10 Atherosclerotic heart disease of native coronary artery without angina pectoris; Z95.5 Presence of coronary angioplasty implant and graft; Z79.4 Long term (current) use of insulin; Z79.82 Long term (current) use of aspirin; Z79.899 Other long term (current) drug therapy; Z88.0 Allergy status to penicillin; Z87.891 Personal history of nicotine dependence; Z79.02 Long term (current) use of antithrombotics/antiplatelets
CPT/HCPCS: 36415; 36416; 80048; 80053; 82962; 83690; 84484; 85025; 93005; 93454; 96372; 96374; 96375; 96376; 99152; 99153; 99285; C1769; C1887; C1894; G0378; J1644; J1815; J2250; J2405; J3010; J3490; J7030; Q9967

== ENCOUNTER 2024-06-27 03:09 | Emergency (ER) | payer OTHER, BC, MEDICAID, SELFPAY ==
[2024-06-27 03:09] VITALS: BP 129/87; PULSE 82; RESP 18; TEMP 36.1; O2SAT 94; BMI 30.1
--- NOTE | 2024-06-27 03:10 | ECG_ITS ---
[employer] Test Date: 2024-06-27 Pat Name: Dwight Urias Department: Room: Gender: Male Care Advocate: : 1970 Requested By: Raz Merino Order Number: [id number] Luz MD: Ulysses Bradley M.D. Measurements Intervals [place] Rate: 82 P: 47 IN: 154 QRS: 69 QRSD: 101 T: 129 QT: 418 QTc: 490 Interpretive Statements SINUS RHYTHM ANTERIOR MYOCARDIAL INFARCTION , OF INDETERMINATE AGE [40+ ms Q WAVE AND/OR ST/T ABNORMALITY IN V3/V4] MODERATE T-WAVE ABNORMALITY, CONSIDER LATERAL ISCHEMIA [-0.1+ mV T-WAVE IN I/aVL/V5/V6] Compared to ECG 05/30/2024 21:34:42 T-wave abnormality now present Possible ischemia now present Sinus bradycardia no longer present Myocardial infarct finding still present Electronically Signed On 06-29-2024 07:44:18 CDT by Ulysses Bradley M.D. [id number]
--- NOTE | 2024-06-27 03:24 | XRR_ITS ---
PROCEDURE INFORMATION: Exam: XR Chest Exam date and time: 06/27/2024 3:28 AM Age: 54 years old Clinical indication: Chest pressure and chest wall pain; Additional info: Chest pain TECHNIQUE: Imaging protocol: Radiologic exam of the chest. Views: 1 view. COMPARISON: No relevant prior studies available. FINDINGS: Lungs: Unremarkable. No consolidation. Pleural spaces: Unremarkable. No pleural effusion. No pneumothorax. Heart/Mediastinum: Unremarkable. No cardiomegaly. Bones/joints: Unremarkable. XR/XR chest 1V portable [id number] IMPRESSION: No acute findings.
[2024-06-27 03:29] LABS: Basophils % 0.8 %; Eosinophils # 0.2 10^3/uL (0.0-0.8); Eosinophils % 4.6 %; Hematocrit 46.7 % (37-53); Lymphocytes # 0.9 10^3/uL (0.8-4.8); Lymphocytes % 16.8 %; Mean Corpuscular HGB Conc 34.3 g/dL (30-55); Mean Corpuscular Hemoglobin 30.2 pg (27-33); Mean Corpuscular Volume 88.3 fl (82-101); Mean Platelet Volume 9.8 fL (7.4-10.4); Monocytes # 0.7 10^3/uL (0.2-0.9); Monocytes % 12.4 %; Neutrophils # 3.42 10^3/uL (1.8-7.7); Neutrophils % 65.2 %; Nucleated Red Blood Cells % 0 %; Platelet Count 186 10^3/cmm (157-399); Red Blood Count 5.29 10^6/uL (3.85-5.65); Red Cell Distribution Width 12.7 % (12.1-15.1); White Blood Count 5.24 10^3/uL (3.29-11.43)
[2024-06-27] MEDS: morphine 4 mg/mL SDV 1 mL IVP (03:45)
[2024-06-27] MEDS: ondansetron 2 mg/ML SDV 2 mL 4 MG IVP (03:45)
[2024-06-27 03:47] VITALS: BP 112/68; PULSE 80; RESP 14; O2SAT 93
[2024-06-27 03:48] LABS: Troponin(5th) Baseline 26 ng/L (0-15)
[2024-06-27 03:54] LABS: Blood Urea Nitrogen 31 mg/dL (6-20); Calcium 8.8 mg/dL (8.5-10.5); Carbon Dioxide 24 mmol/L (22-29); Chloride 105 mmol/L (98-107); Creatinine Clr Calc Pharmacy 122.2836; Glomerular Filtration Rate 100.7 mL/min (90-130); Glucose 144 mg/dL (65-115); NT Pro B Type Natriuretic Pept 369 pg/mL (0-125); Osmolality Calculated 299 mOsm/kg (285-295); Sodium 140 mmol/L (136-145)
[2024-06-27 04:48] VITALS: BP 111/64; PULSE 74; RESP 12; O2SAT 94
--- NOTE | 2024-06-27 05:24 | ECG_ITS ---
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 Measurements Intervals [place] Rate: 62 P: 45 [place]: 164 QRS: 75 QRSD: 102 T: 124 QT: 478 QTc: 488 Interpretive Statements SINUS RHYTHM ANTEROLATERAL MYOCARDIAL INFARCTION , OF INDETERMINATE AGE [40+ ms Q WAVE IN I/aVL/V3-V6] Compared to ECG 06/27/2024 03:10:27 T-wave abnormality no longer present Possible ischemia no longer present Myocardial infarct finding still present Electronically Signed On 06-29-2024 07:49:11 CDT by Ulysses Bradley M.D. [id number]
--- NOTE | 2024-06-27 05:31 | W.ED.CHESTPA ---
HPI - Chest Pain General: Chief Complaint: Chest Pain Stated Complaint: CP Time Seen by Provider: 06/27/24 03:14 History of Present Illness: This patient is a 54-year-old white male who presents to the emergency department with chest pain. He states it started 2 hours prior to arrival. It is in the left upper chest describes it as a squeezing sensation. He does have some shortness of breath as well. He was brought in by EMS and they did give him aspirin, 2 nitroglycerin tablets, morphine and placed 1 inch of Nitropaste. Patient does have a history of coronary artery disease. He had a stent placed May 22 of this year. Patient still rates his pain a 4 out of 10. Associated symptoms: Reports dyspnea Related Data Home Medications ?Medication ?Instructions ?Recorded ?Confirmed risankizumab-rzaa 150 mg/mL 150 mg SUBCUT Q30D 05/23/24 05/30/24 subcutaneous pen injector (Skyrizi) Previous Rx's ?Medication ?Instructions ?Recorded aspirin 81 mg tablet,delayed 81 mg PO DAILY #30 tabs 05/24/24 release atorvastatin 40 mg tablet 80 mg (2 x 40 mg) PO BEDTIME #30 05/24/24 tabs insulin glargine 100 unit/mL (3 10 unit (0.1 mL) SUBCUT QPM #15 mL 05/24/24 mL) subcutaneous pen (Basaglar KwikPen U-100 Insulin) metoprolol succinate 25 mg 12.5 mg (1/2 x 25 mg) PO DAILY #30 05/24/24 tablet,extended release 24 hr tabs lisinopril 2.5 mg tablet 2.5 mg PO DAILY #90 tabs 05/30/24 clopidogrel 75 mg tablet 75 mg PO DAILY #90 tabs 06/26/24 nitroglycerin 0.4 mg sublingual 0.4 mg sublingual Q5M PRN chest 06/27/24 tablet pain #30 tabs Allergies Allergy/AdvReac Type Severity Reaction Status Date / Time acetaminophen Allergy ALGY-Hives Verified 06/27/24 03:11 ibuprofen Allergy ALGY-Hives Verified 06/27/24 03:11 Penicillins Allergy ALGY-Anaphy Verified 06/27/24 03:11 laxis Review of Systems General: Reports: 10 or more systems reviewed and unremarkable except in HPI and below Card: Reports: chest pain Resp: Reports: dyspnea PFSH ED PFSH: Medical History ST elevation AR (STEMI) Diabetes mellitus Social History Smoking and tobacco/nicotine status: former use of tobacco/nicotine Physical Exam Const: COMMON NORMALS: patient oriented x3 and no limitations GENERAL APPEARANCE: cooperative and comfortable HENMT: COMMON NORMALS: normocephalic, atraumatic, Normal nasal mucous membranes and turbinates present, moist oral mucous membranes and oropharynx normal HEAD & SCALP: normal to inspection, normocephalic and atraumatic FACE & SINUS: normal facial exam NOSE: Normal nasal mucous membranes and turbinates present Eye: COMMON NORMALS: Equal, round and reactive pupils present, EOMs intact bilaterally and conjunctivae normal GENERAL EYE: appearance normal, both eyes and all related structures CONJUNCTIVA: Yes conjunctivae normal PUPIL: Yes Equal, round and reactive pupils present Neck/C-Spine: COMMON NORMALS: supple and no JVD Chest: COMMONS NORMALS: normal inspection of the chest Resp: COMMON NORMALS: normal respiratory effort and clear to auscultation bilaterally AUSCULTATION: clear to auscultation bilaterally Cardio: COMMON NORMALS: no JVD, regular rate, regular rhythm, No gallops present (Cardio), No murmurs present (Cardio) and No rub (Cardio) RATE: regular rate RHYTHM: regular rhythm GI: COMMON NORMALS: Normal to inspection, nondistended, normoactive bowel sounds present, Soft to palpation and non-tender AUSCULTATION: Yes normoactive bowel sounds PALPATION: Yes Soft to palpation : COMMON NORMALS: Yes no CVA tenderness BLADDER/KIDNEY EXAM: Yes no CVA tenderness Back/Pelvis: COMMON NORMALS: no CVA tenderness and thoracic and lumbar spine normal to inspection Extremity: COMMON NORMALS: normal to inspection Neuro: COMMON NORMALS: patient oriented x3 and CN's II-XII intact bilaterally Psych: COMMON NORMALS: mental status grossly normal, Normal thought process present and cooperative THOUGHT PROCESS: Normal thought process present Skin: COMMON NORMALS: no rashes or lesions noted, turgor normal and no jaundice GENERAL SKIN EXAM: no rashes or lesions noted and turgor normal Course Vital Signs: Vital signs: Vital Signs Temperature 97.0 F L 06/27/24 03:09 Pulse Rate 64 06/27/24 05:37 Respiratory Rate 14 06/27/24 05:37 Blood Pressure 100/59 06/27/24 05:37 Pulse Oximetry 94 06/27/24 05:37 Oxygen Delivery Me thod Room Air 06/27/24 05:37 MDM - Chest Pain Medical Decision Making EKG revealed inverted T waves laterally no change from previous EKG. Chest x-ray was normal. CBC and BMP normal. BNP was 369. Baseline troponin 26. Patient was given 4 mg of morphine in the emergency department. 2-hour troponin was 26. Patient pain-free now. Patient was discharged in stable condition with a prescription for nitroglycerin sublingual tablets to be used as needed. Recommended he follow-up with his primary care provider and/or [facility] within 1 week for recheck. Lab Data 06/27/24 03:16 06/27/24 03:16 Radiology Impressions Chest X-Ray 06/27/24 03:24 IMPRESSION: No acute findings. Laboratory Results WBC 5.24 10^3/uL (3.29-11.43) 06/27/24 03:16 RBC 5.29 10^6/uL (3.85-5.65) 06/27/24 03:16 Hgb 16.00 g/dL (11.27-16.99) 06/27/24 03:16 Hct 46.7 % (37-53) 06/27/24 03:16 MCV 88.3 fl (82-101) 06/27/24 03:16 MCH 30.2 pg (27-33) 06/27/24 03:16 MCHC 34.3 g/dL (30-55) 06/27/24 03:16 RDW 12.7 % (12.1-15.1) 06/27/24 03:16 Plt Count 186 10^3/cmm (157-399) 06/27/24 03:16 MPV 9.8 fL (7.4-10.4) 06/27/24 03:16 Neut % (Auto) 65.2 % 06/27/24 03:16 Lymph % (Auto) 16.8 % 06/27/24 03:16 Pratt % (Auto) 12.4 % 06/27/24 03:16 Eos % (Auto) 4.6 % 06/27/24 03:16 Baso % (Auto) 0.8 % 06/27/24 03:16 Neut # (Auto) 3.42 10^3/uL (1.8-7.7) 06/27/24 03:16 Lymph # (Auto) 0.9 10^3/uL (0.8-4.8) 06/27/24 03:16 Pratt # (Auto) 0.7 10^3/uL (0.2-0.9) 06/27/24 03:16 Eos # (Auto) 0.2 10^3/uL (0.0-0.8) 06/27/24 03:16 Baso # (Auto) 0.0 10^3/uL (0.0-0.1) 06/27/24 03:16 Nucleated RBC % (auto) 0 % 06/27/24 03:16 Nucleated RBCs # 0.0 /100WBC 06/27/24 03:16 Sodium 140 mmol/L (136-145) 06/27/24 03:16 Potassium 4.0 mmol/L (3.5-5.1) 06/27/24 03:16 Chloride 105 mmol/L (98-107) 06/27/24 03:16 Carbon Dioxide 24 mmol/L (22-29) 06/27/24 03:16 Anion Gap 15.0 (5-19) 06/27/24 03:16 BUN 31 mg/dL (6-20) H 06/27/24 03:16 Creatinine 0.8 mg/dL (0.7-1.2) 06/27/24 03:16 GFR Calculation 100.7 mL/min (90-130) 06/27/24 03:16 Glucose 144 mg/dL (65-115) H 06/27/24 03:16 Calculated Osmolality 299 mOsm/kg (285-295) H 06/27/24 03:16 Calcium 8.8 mg/dL (8.5-10.5) 06/27/24 03:16 Troponin T Baseline 26 ng/L (0-15) H 06/27/24 03:16 Troponin T 120 Minute 26.47 ng/L (0-15) H 06/27/24 05:23 Delta Troponin T 0.47 ABS# (0-10) 06/27/24 05:23 NT-Pro-B Natriuret Pep 369 pg/mL (0-125) H 06/27/24 03:16 All radiology interpretation(s) finalized by discharge Discharge Plan Discharge Patient Disposition: Home Clinical Impression: Chest pain Qualifiers: Chest pain type: unspecified Qualified Code(s): R07.9 - Chest pain, unspecified Condition: Stable Prescriptions: New nitroglycerin 0.4 mg tablet, sublingual 0.4 mg sublingual Q5M PRN (Reason: chest pain) Qty: 30 0RF Rx Instructions: do not exceed 3 doses per episode No Action lisinopril 2.5 mg tablet 2.5 mg PO DAILY Qty: 90 1RF clopidogrel 75 mg tablet 75 mg PO DAILY Qty: 90 3RF Skyrizi 150 mg/mL pen injector 150 mg SUBCUT Q30D atorvastatin 40 mg Tablet 80 mg PO BEDTIME Qty: 30 0RF aspirin 81 mg Tablet,Delayed Release (Dr/Ec) 81 mg PO DAILY Qty: 30 0RF metoprolol succinate 25 mg Tablet Extended Release 24 Hr 12.5 mg PO DAILY Qty: 30 0RF insulin glargine [Basaglar KwikPen U-100 Insulin] 100 unit/mL (3 mL) insulin pen 10 unit SUBCUT QPM Qty: 15 0RF Discharge Orders: Discharge ED (Routine); Ordered 06/27/24 Ordered By: Raz Merino Patient Instructions: Chest Pain (ED) Activity Restrictions/Additional Instructions: Follow-up with your primary care provider and/or [facility] within 1 week for recheck. Print Language: [place] Coding Level of Care Code ED [employer] for [employer]
[2024-06-27 05:37] VITALS: BP 100/59; PULSE 64; RESP 14; O2SAT 94
--- NOTE | 2024-06-27 05:45 | PC.NURSE ---
NITRO PASTE REMOVED BY NURSE.
[2024-06-27 05:56] LABS: Troponin 5 2HR 26.47 ng/L (0-15); Troponin 5 2HR Delta 0.47 ABS# (0-10)
[2024-06-27 06:08] VITALS: BP 93/66; PULSE 66; RESP 16; O2SAT 95
== END 2024-06-27 06:31 | disposition home or self-care (01) ==
PROVIDERS: Emergency Provider Emergency Medicine
DX: R07.9 Chest pain, unspecified (principal); Z79.02 Long term (current) use of antithrombotics/antiplatelets; Z79.82 Long term (current) use of aspirin; Z79.4 Long term (current) use of insulin; Z87.891 Personal history of nicotine dependence; E11.9 Type 2 diabetes mellitus without complications
CPT/HCPCS: 71045; 80048; 83880; 84484; 85025; 93005; 96374; 96375; 99285; J2270; J2405

== ENCOUNTER → 2024-08-02 14:39 | Outpatient (BNVA) | payer OTHER, BC, MEDICAID, SELFPAY | PROVIDERS: PCP Family Medicine; Visit Provider Family Medicine | DX: E11.9 Type 2 diabetes mellitus without complications (principal); I25.10 Atherosclerotic heart disease of native coronary artery without angina pectoris | CPT/HCPCS: 80053; 80061; 83036; 84439; 84443; 85025 ==

== ENCOUNTER → 2024-08-16 10:02 | Outpatient (BNVA) | payer OTHER, BC, MEDICAID, SELFPAY | PROVIDERS: PCP Family Medicine; Visit Provider Nurse Practitioner Family | DX: I10 Essential (primary) hypertension (principal) | CPT/HCPCS: 36415; 80053; 82252 ==

== ENCOUNTER 2024-08-28 14:09 | Outpatient (CLI) | payer BC, MEDICAID, SELFPAY ==
[2024-08-28 15:11] LABS: Anion Gap 18.2 (5-19); Blood Urea Nitrogen 21 mg/dL (6-20); Carbon Dioxide 21 mmol/L (22-29); Chloride 104 mmol/L (98-107); Glomerular Filtration Rate 77.9 mL/min (90-130); Glucose 224 mg/dL (65-115); Osmolality Calculated 298 mOsm/kg (285-295); Potassium 4.2 mmol/L (3.5-5.1); Sodium 139 mmol/L (136-145)
== END 2024-08-28 14:10 | disposition home or self-care (01) ==
LOC: LAB 14:10
PROVIDERS: PCP Family Medicine; Visit Provider Nurse Practitioner Family
DX: R94.5 Abnormal results of liver function studies (principal)
CPT/HCPCS: 36415; 80048

== ENCOUNTER → 2025-01-09 15:01 | Outpatient (BNVA) | payer OTHER, BC, MEDICAID, SELFPAY | PROVIDERS: PCP Family Medicine; Visit Provider Orthopaedic Surgery | DX: S89.92XA Unspecified injury of left lower leg, initial encounter (principal); Z01.89 Encounter for other specified special examinations; X58.XXXA Exposure to other specified factors, initial encounter | CPT/HCPCS: 73560; 73565 ==